=== PATIENT | female | born 1955 | race Two or more races ===

== ENCOUNTER → 2022-07-29 | Outpatient (CLI) | payer MEDICARE, MEDICAID ==
[2022-07-29 16:04] LABS: Urine Blood TRACE /uL (Negative); Urine Specific Gravity 1.015 (1.001-1.035)
[2022-07-29 16:07] LABS: Basophils # (auto) 0.1 10 ^3/uL (0-0.2); Basophils % (auto) 1.4 % (0.0-2.0); Eosinophils # (auto) 0 10 ^3/uL (0-0.8); Hematocrit 30.5 % (36.0-46.0); Hemoglobin 10.2 g/dL (12.2-16.2); Lymphocytes % (auto) 23.6 % (10.0-50.0); Mean Corpuscular Hemoglobin 32.1 pg (28.0-32.0); Mean Corpuscular Hgb Conc. 33.4 g/dL (32.0-36.0); Mean Corpuscular Volume 96.1 fL (80.0-100.0); Monocytes # (auto) 0.2 10 ^3/uL (0-1.3); Monocytes % (auto) 3.9 % (0.0-12.0); Neutrophils # (auto) 2.8 10 ^3/uL (1.6-8.6); Neutrophils % (auto) 70.1 % (37.0-80.0); Red Blood Cells 3.18 10^6/uL (4.0-5.20); White Blood Cell 4.1 10^3/uL (4.4-10.8)
[2022-07-29 16:36] LABS: Albumin 3.4 g/dL (3.4-5.0); BUN/Creatinine Ratio 22.4; Bilirubin, Direct 0.3 mg/dL (0-0.2); Potassium 3.9 mmol/L (3.5-5.1)
[2022-07-29 16:42] LABS: Bilirubin, Total 1.4 mg/dL (0.2-1.0)
[2022-07-29 17:05] LABS: Nucleated Red Blood Cells % 3.9 %; Red Cell Distribution Width 22.5 % (11.8-14.3)
== END | disposition home or self-care (01) ==
LOC: LAB 11:46
PROVIDERS: ATTEND Internal Medicine Cardiovascular Disease
DX: I11.0 Hypertensive heart disease with heart failure (principal); I50.23 Acute on chronic systolic (congestive) heart failure; E55.9 Vitamin D deficiency, unspecified; D51.3 Other dietary vitamin B12 deficiency anemia; D64.9 Anemia, unspecified; E11.9 Type 2 diabetes mellitus without complications; R00.2 Palpitations; R53.1 Weakness; R30.0 Dysuria
CPT/HCPCS: 36415; 80048; 80061; 80076; 81003; 82306; 83036; 83880; 84403; 84443; 85025

== ENCOUNTER → 2022-08-13 | Outpatient (CLI) | payer MEDICARE, MEDICAID | END | disposition home or self-care (01) | LOC: Rad HDHVI 12:40 | PROVIDERS: ATTEND Internal Medicine Cardiovascular Disease | DX: I35.0 Nonrheumatic aortic (valve) stenosis (principal); R07.89 Other chest pain; R00.2 Palpitations | CPT/HCPCS: 93306 ==

== ENCOUNTER → 2022-08-18 | Outpatient (CLI) | payer MEDICARE, MEDICAID ==
[~2022-08-18] VITALS: Ht 167.6 cm; Wt 145.1 kg
[~2022-08-18] MED LIST: ADENOSINE 122 MG in GIVE UN-DILUTED 0 ML IV ONE; ADENOSINE 90 MG/30 ML INJ IV ONE
== END | disposition home or self-care (01) ==
LOC: Rad HDHVI 09:09
PROVIDERS: ATTEND Internal Medicine Cardiovascular Disease
DX: C50.919 Malignant neoplasm of unspecified site of unspecified female breast (principal); R07.89 Other chest pain; E11.9 Type 2 diabetes mellitus without complications; R06.02 Shortness of breath; I31.39 Other pericardial effusion (noninflammatory); R00.2 Palpitations; Z79.84 Long term (current) use of oral hypoglycemic drugs; Z79.899 Other long term (current) drug therapy
CPT/HCPCS: 78452; 93005; 96374; 96375; A9500; J0153; J1642

== ENCOUNTER → 2023-01-25 | Outpatient (CLI) | payer OTHER ==
[~2023-01-25] MED LIST changes: -ADENOSINE 122 MG in GIVE UN-DILUTED 0 ML IV ONE; -ADENOSINE 90 MG/30 ML INJ IV ONE; +AMIO200T33 PO; +ANAS1TAB7 PO; +APIX5TAB PO; +CHOL50007 PO; +FER325T PO; +FURO1TAB31 PO; +GABA800T97 PO; +HYDR-4798 PO; +LOSA25TA38 PO; +METF-370 PO; +POM; +POM SC
[2023-01-25 10:13] VITALS: BP 120/73
[2023-01-25 10:28] VITALS: BP 127/73
== END | disposition home or self-care (01) ==
LOC: Rad HDHVI 09:53
PROVIDERS: ATTEND Internal Medicine Cardiovascular Disease
DX: Z01.818 Encounter for other preprocedural examination (principal); I11.0 Hypertensive heart disease with heart failure; I50.33 Acute on chronic diastolic (congestive) heart failure; I35.1 Nonrheumatic aortic (valve) insufficiency
CPT/HCPCS: 71046; 93005; G0463

== ENCOUNTER 2023-01-28 07:27 | Day surgery (SDC) | payer OTHER, MEDICAID ==
[2023-01-25 12:34] LABS: Basophils # (auto) 0.1 10 ^3/uL (0-0.2); Basophils % (auto) 1.5 % (0.0-2.0); Eosinophils # (auto) 0.1 10 ^3/uL (0-0.8); Eosinophils % (auto) 2.6 % (0.0-7.0); Hematocrit 41.2 % (36.0-46.0); Hemoglobin 13.7 g/dL (12.2-16.2); Lymphocytes # (auto) 1.5 10 ^3/uL (0.4-5.4); Lymphocytes % (auto) 28.1 % (10.0-50.0); Mean Corpuscular Hemoglobin 27.4 pg (28.0-32.0); Mean Corpuscular Hgb Conc. 33.3 g/dL (32.0-36.0); Mean Corpuscular Volume 82.3 fL (80.0-100.0); Monocytes # (auto) 0.4 10 ^3/uL (0-1.3); Monocytes % (auto) 7.5 % (0.0-12.0); Neutrophils # (auto) 3.1 10 ^3/uL (1.6-8.6); Neutrophils % (auto) 60.3 % (37.0-80.0); Nucleated Red Blood Cells % 0.2 %; White Blood Cell 5.2 10^3/uL (4.4-10.8)
[2023-01-25 13:01] LABS: INR 0.96 (0.9-1.15); Partial Thromboplastin Time 26.8 sec (24.6-33.4)
[2023-01-25 13:34] LABS: Calcium 8.8 mg/dL (8.5-10.1); Potassium 4.1 mmol/L (3.5-5.1)
[2023-01-28] VITALS (7 sets, daily range): BP systolic 117–154; BP diastolic 78–97
[~2023-01-28] VITALS: Ht 170.2 cm; Wt 140.6 kg
[2023-01-28] MEDS ORDERED: fentaNYL CITRATE 100 MCG/2 ML VL ONE (10:12)
[2023-01-28] MEDS ORDERED: ANGIOMAX 250 MG VIAL IV ONE (10:12)
[2023-01-28] MEDS ORDERED: MIDAZOLAM HCL 2MG/2ML 2ml VIAL (1mg/ml) ONE (10:13)
[2023-01-28] MEDS ORDERED: SODIUM CHL 0.9% 0 ML ONE (10:13)
[2023-01-28] MEDS ORDERED: LIDOCAINE 2%HCL (LOCAL ANESTH.) INJ 20ML MDV ONE (10:13)
[2023-01-28] MEDS ORDERED: VERAPAMIL 2.5MG/ML INJ 2ML VIAL IV ONE (10:33)
[2023-01-28] MEDS ORDERED: HYDROcodone-ACET 10/325MG TAB PO ONE (11:15)
== END 2023-01-28 13:55 | disposition home or self-care (01) ==
LOC: CATH 07:27
PROVIDERS: ATTEND Internal Medicine Cardiovascular Disease
DX: R94.39 Abnormal result of other cardiovascular function study (principal); R00.2 Palpitations; E11.9 Type 2 diabetes mellitus without complications; I73.9 Peripheral vascular disease, unspecified; E66.01 Morbid (severe) obesity due to excess calories; I25.10 Atherosclerotic heart disease of native coronary artery without angina pectoris; I10 Essential (primary) hypertension; Z87.891 Personal history of nicotine dependence; Z98.890 Other specified postprocedural states; Z79.899 Other long term (current) drug therapy; Z79.84 Long term (current) use of oral hypoglycemic drugs
CPT/HCPCS: 36415; 80048; 85025; 85610; 85730; 93458; C1725; C1769; C1887; C1894; J1642; J1644; J2250; J3010; 99152; 99153

== ENCOUNTER → 2023-09-29 | Outpatient (CLI) | payer MEDICARE, MEDICAID ==
[~2023-09-29] MED LIST changes: +LOSA25TA15 PO; -LOSA25TA38 PO
== END | disposition home or self-care (01) ==
LOC: Rad HDHVI 12:48
PROVIDERS: ATTEND Internal Medicine Cardiovascular Disease
DX: I65.21 Occlusion and stenosis of right carotid artery (principal); I10 Essential (primary) hypertension
CPT/HCPCS: 93880

== ENCOUNTER → 2023-10-01 | Outpatient (CLI) | payer MEDICARE, MEDICAID | END | disposition home or self-care (01) | LOC: Rad HDHVI 10:32 | PROVIDERS: ATTEND Internal Medicine Cardiovascular Disease | DX: I35.1 Nonrheumatic aortic (valve) insufficiency (principal); I11.9 Hypertensive heart disease without heart failure; R07.89 Other chest pain | CPT/HCPCS: 93306 ==

== ENCOUNTER → 2024-06-30 | Outpatient (CLI) | payer MEDICARE, MEDICAID ==
[~2024-06-30] MED LIST changes: +LOSA-533 PO; -LOSA25TA15 PO
== END | disposition home or self-care (01) ==
LOC: Rad HDHVI 13:55
PROVIDERS: ATTEND Internal Medicine Cardiovascular Disease
DX: Z01.818 Encounter for other preprocedural examination (principal)
CPT/HCPCS: 93306

== ENCOUNTER → 2024-07-11 | Outpatient (CLI) | payer MEDICARE, MEDICAID ==
[~2024-07-11] VITALS: Ht 170.2 cm; Wt 158.8 kg
[~2024-07-11] MED LIST changes: +ADENOSINE 133 MG in GIVE UN-DILUTED 0 ML IV ONE; +ADENOSINE 90 MG/30 ML INJ IV ONE
== END | disposition home or self-care (01) ==
LOC: Rad HDHVI 12:41
PROVIDERS: ATTEND Internal Medicine Cardiovascular Disease
DX: Z01.810 Encounter for preprocedural cardiovascular examination (principal); I11.0 Hypertensive heart disease with heart failure; I50.33 Acute on chronic diastolic (congestive) heart failure; R06.02 Shortness of breath; E78.00 Pure hypercholesterolemia, unspecified; I06.1 Rheumatic aortic insufficiency; E11.21 Type 2 diabetes mellitus with diabetic nephropathy; Z86.79 Personal history of other diseases of the circulatory system
CPT/HCPCS: 78452; 93005; 96374; 96375; A9500; J0153

== ENCOUNTER 2025-07-10 15:46 | Inpatient (IN) | payer OTHER, MEDICARE, MEDICAID ==
[~2025-07-10] VITALS: Ht 167.6 cm; Wt 165.3 kg
[~2025-07-10 15:46] MED LIST changes: -ADENOSINE 133 MG in GIVE UN-DILUTED 0 ML IV ONE; -ADENOSINE 90 MG/30 ML INJ IV ONE
--- NOTE | 2025-07-10 17:17 | ED.PDOC ---
HPI (NEURO) HPI Comments 70y F who presents to the ED for chief complaint of R sided weakness. Pt states she has been having R sided facial and R lower extremity weakness since last night PM. Pt states she started to feel R sided numbness and pain with associated lower back pain and came to the ED for further evaluation. Pt in the ED, is alert and oriented x 4 and able to answer all questions. Pt noted to be ambulating with walker. Pt denies any other symptoms at this time. 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 Family History Family History: Reviewed,noncontributory to illness Social History Smoker: Non-Smoker Alcohol: Denies ETOH Use Drugs: Denies Drug Use Lives In: Home Constitutional: denies: chills, diaphoresis, fatigue, fever, malaise, sweats, weakness, others EENTM: denies: blurred vision, double vision, ear bleeding, ear discharge, ear drainage, ear pain, ear ringing, eye pain, eye redness, hearing loss, mouth pain, mouth swelling, nasal discharge, nose bleeding, nose congestion, nose pain, photophobia, tearing, throat pain, throat swelling, voice changes, others Respiratory: denies: cough, hemoptysis, orthopnea, SOB at rest, shortness of breath, SOB with excertion, stridor, wheezing, others Cardiovascular: denies: chest pain, dizzy spells, diaphoresis, Dyspnea on exertion, edema, irregular heart beat, left arm pain, lightheadedness, palpitations, PND, syncope, others Gastrointestinal: denies: abdomen distended, abdominal pain, blood streaked bowels, constipated, diarrhea, dysphagia, difficulty swallowing, hematemesis, melena, nausea, poor appetite, poor fluid intake, rectal bleeding, rectal pain, vomiting, others Genitourinary: denies: abnormal vagina bleeding, burning, dyspareunia, dysuria, flank pain, frequency, hematuria, incontinence, pain, , vagina discharge, urgency, others Neurological: reports: right sided numbness, right sided weakness; denies: dizziness, fainting, headache, left sided numbness, left sided weakness, numbness, paresthesia, pre-existing deficit, seizure, speech problems, tingling, tremors, weakness, others Musculoskeletal: denies: back pain, gout, joint pain, joint swelling, muscle pain, muscle stiffness, neck pain, others Integumetry: denies: bruises, change in color, change in hair/nails, dryness, laceration, lesions, lumps, rash, wounds, others Allergic/Immunocompromised: denies: Difficulty Healing, Frequent Infections, Hives, Itching, others Hematologic/Lymphatic: denies: anemia, blood clots, easy bleeding, easy bruising, swollen glands, others Endocrine: denies: excessive hunger, excessive sweating, excessive thirst, excessive urination, flushing, intolerance to cold, intolerance to heat, unexplained weight gain, unexplained weight loss, others Psychiatric: denies: anxiety, bipolar disorder, depression, hopeless, panic disorder, schizophrenia, sleepless, suicidal, others All Other Systems: Reviewed and Negative Physical Exam General Appearance: No Apparent Distress, Normal HEENT: Eye Lid (R) (Mild swelling noted to right-sided eyelid), Normal ENT Inspection, Pharynx Normal, TMs Normal Neck: Full Range of Motion, Non-Tender, Normal, Normal Inspection Respiratory: Chest Non-Tender, Lungs Clear, No Accessory Muscle Use, No Res piratory Distress, Normal Breath Sounds Cardiovascular: No Edema, No JVD, No Murmur, No Gallop, Normal Peripheral Pulses, Regular Rate/Rhythm Breast Exam: Deferred Gastrointestinal: No Organomegaly, Non Tender, No Pulsatile Mass, Normal Bowel Sounds, Soft Genitalia: Deferred Pelvic: Deferred Rectal: Deferred Extremities: No calf tenderness, Normal capillary refill, Non-tender, No pedal edema Musculoskeletal : Apperance: Normal Neurologic: Alert, communication skills instructor II-XII nml as Tested, No Motor Deficits, Normal Affect, Normal Mood, No Sensory Deficits, Other (No pronator drift) Cerebellar Function: Normal Reflexes: Normal Skin: Dry, Normal Color, Warm Lymphatic: No Adenopathy Was a procedure done? Was a procedure done?: No Differential Diagnosis (SZ) Seizure: N/A General Weakness: Anemia, CVA, Dehydration, Electrolyte imbalance, Encephalopathy, Hypoglycemia, Hypotension, TIA, Vertigo: central, Vertigo: peripheral, Other (UTI, ) X-Ray, Labs, Meds, VS Vital Signs Date Time Temp Pulse Resp B/P (MAP) Pulse Ox O2 Delivery O2 Flow Rate FiO2 07/10/25 16:04 87 07/10/25 15:49 98.2 69 17 125/92 96 98.2 Lab Test 07/10/25 17:02 Range/Units White Blood Count 5.6 4.4-10.8 10^3/uL Red Blood Count 4.47 4.0-5.20 10^6/uL Hemoglobin 12.2 12.2-16.2 g/dL Hematocrit 36.6 36.0-46.0 % Mean Corpuscular Volume 81.9 80.0-100.0 fL Mean Corpuscular Hemoglobin 27.2 L 28.0-32.0 pg Mean Corpuscular Hemoglobin Concent 33.2 32.0-36.0 g/dL Red Cell Distribution Width 16.9 H 11.8-14.3 % Platelet Count 244 140-450 10^3/uL Mean Platelet Volume 8.3 6.9-10.8 fL Neutrophils (%) (Auto) 62.4 37.0-80.0 % Lymphocytes (%) (Auto) 26.3 10.0-50.0 % Monocytes (%) (Auto) 7.5 0.0-12.0 % Eosinophils (%) (Auto) 2.1 0.0-7.0 % Basophils (%) (Auto) 1.7 0.0-2.0 % Neutrophils # (Auto) 3.5 1.6-8.6 10 ^3/uL Lymphocytes # (Auto) 1.5 0.4-5.4 10 ^3/uL Monocytes # (Auto) 0.4 0-1.3 10 ^3/uL Eosinophils # (Auto) 0.1 0-0.8 10 ^3/uL Basophils # (Auto) 0.1 0-0.2 10 ^3/uL Nucleated Red Blood Cells 0.1 % Prothrombin Time 10.8 9.3-11.8 sec Prothrombin Time INR 1.02 0.9-1.15 Sodium Level 142 136-145 mmol/L Potassium Level 4.3 3.5-5.1 mmol/L Chloride Level 107 98-107 mmol/L Carbon Dioxide Level 26 20-31 mmol/L Anion Gap 9 5-15 Blood Urea Nitrogen 18 9-23 mg/dL Creatinine 1.12 H 0.550-1.02 mg/dL Glomerular Filtration Rate Calc 53 >90 mL/min BUN/Creatinine Ratio 16.1 10.0-20.0 Serum Glucose 118 H 74-106 mg/dL Lactic Acid Level 1.3 0.4-2.0 mmol/L Calcium Level 9.2 8.7-10.4 mg/dL Total Bilirubin 0.5 0.2-1.0 mg/dL Aspartate Amino Transferase (AST) 13 13-40 U/L Alanine Aminotransferase (ALT) 14 7-40 U/L Alkaline Phosphatase 157 H 46-116 U/L Total Protein 7.1 5.7-8.2 g/dL Albumin 4.1 3.2-4.8 g/dL X-Ray, Labs, Meds, VS Comment Imaging was reviewed by this provider, there is no obvious pathological or acute disease process. Pending radiology review Labs were reviewed by this provider, no abnormalities Vital signs reviewed by this provider, clinically stable Patient unable to bear weight on the right side Concerns that patient is still has numbness and pain on the right side. Patient will be admitted for further evaluation Recommend Neurology consult Recommend MRI Time of 1ST Reevaluation: 17:50 Reevaluation 1ST: Unchanged Patient Education/Counseling: Diagnosis, Treatment Family Education/Counseling: No Family Present Departure 1 Departure Time of Disposition: 18:44 Impression: Primary Impression: Right sided numbness Additional Impressions: Right-sided back pain Qualified Codes: M54.6 - Pain in thoracic spine Incontinence in female Disposition: ADMITTED INPATIENT Condition: Stable Discharged With: Self Critical Care Note Critical Care Time?: No Stability Stability form required: No Heart Score Heart Score: Heart Score Response (Comments) Value History N/A 0 EKG N/A 0 Age N/A 0 Risk Factors N/A 0 Troponin N/A 0 Total 0 I personally scribed for ALISON OJEDA (JENNIFER) on 07/10/25 at 17:17. Electronically submitted by Chris BRENNER). I personally scribed for ALISON OJEDA (JENNIFER) on 07/10/25 at 17:21. Electronically submitted by Chris BRENNER). ALISON OJEDAP Jul 10, 2025 17:17
[2025-07-10 17:20] LABS: Hematocrit 36.6 % (36.0-46.0); Hemoglobin 12.2 g/dL (12.2-16.2); Mean Corpuscular Hemoglobin 27.2 pg (28.0-32.0); Mean Corpuscular Volume 81.9 fL (80.0-100.0); Nucleated Red Blood Cells % 0.1 %
[2025-07-10 17:31] LABS: Alanine Aminotransferase 14 U/L (7-40); Albumin 4.1 g/dL (3.2-4.8); Anion Gap 9 (5-15); BUN/Creatinine Ratio 16.1 (10.0-20.0); Blood Urea Nitrogen 18 mg/dL (9-23); Calcium 9.2 mg/dL (8.7-10.4); Carbon Dioxide 26 mmol/L (20-31); Potassium 4.3 mmol/L (3.5-5.1); Sodium 142 mmol/L (136-145); Total Protein 7.1 g/dL (5.7-8.2)
[2025-07-10 17:32] LABS: Bilirubin, Total 0.5 mg/dL (0.2-1.0)
[2025-07-10 17:36] LABS: INR 1.02 (0.9-1.15); Prothrombin Time 10.8 sec (9.3-11.8)
[2025-07-10 17:46] LABS: Alkaline Phosphatase 157 U/L (46-116); Chloride 107 mmol/L (98-107); Glucose 118 mg/dL (74-106)
--- NOTE | 2025-07-10 18:27 | DVH ---
EXAM: CT STROKE CTH INDICATION: RIGHT SIDED WEAKNESS TECHNIQUE: CT of the head without intravenous contrast. Radiation Dose Information: CT Dose: CTDI volume is 66.47 mGy. Dose-length product is 1259.73 mGy*cm The dose indicators for CT are the volume Computed Tomography (CT) Dose Index (CTDIvol) and the Dose Length Product (DLP), and are measured in units of mGy and mGy-cm, respectively. These indicators are not patient dose, but values generated from the CT scanner acquisition factors. The report includes radiation exposure data for exposures received during this examination. COMPARISON: US CAROTID DUPLX W COLOR DOP on DOS: 09/29/23 FINDINGS: There is no evidence of acute intracranial hemorrhage, extra-axial collection, mass effect, midline s hift, herniation or hydrocephalus. The ventricles, sulci and cisterns are age appropriate. The kelsey-white differentiation is intact. Patchy periventricular and subcortical white matter hypoattenuation is nonspecific but may be related to small vessel ischemic disease. The visualized paranasal sinuses and mastoid air cells are clear. The surrounding soft tissues and osseous structures are unremarkable. IMPRESSION: No acute intracranial abnormality.
[2025-07-10 20:00] VITALS: O2SAT 98
[2025-07-10] MEDS ORDERED: ONDANSETRON HCL 4 MG/2 ML VIAL IV PRN (20:45)
[2025-07-10] MEDS ORDERED: DEXTROSE (50%) 50ML SYRG IV PRN (20:45)
[2025-07-10 22:10] VITALS: BP 138/79; PULSE 84; RESP 19; TEMP 97.6; O2SAT 92
[2025-07-10] MEDS: ACCU-CHEK COMFORT CURVE STRIP VI SCH (23:10)
--- NOTE | 2025-07-10 23:12 | DVHHP2 ---
History of Present Illness Reason for Visit: Numbness History of Present Illness 70-year-old female presents for evaluation of right-sided numbness. Patient reports developing right-sided numbness from her face down to her right leg. Denies unilateral weakness, slurred speech or blurred vision. No cardiac or respiratory complaints. Past Medical History Hypertension, breast cancer, AFib, diabetes mellitus Past Surgical History Denies Family History Noncontributory Smoke: No ALCOHOL: none Drugs: None, Marijuana Lives: with Family Review of Systems Review of Systems Review of systems are currently negative otherwise addressed in HPI. Allergies: Coded Allergies: No Known Drug Allergy (Verified Allergy, Unknown, 01/25/23) Medications Current Medications Medications Dose Ordered Sig/Brandon Route Start Time Stop Time Status Last Admin Dose Admin Amiodarone HCl 400 mg DAILY PO 07/11/25 10:00 Apixaban 5 mg BID PO 07/10/25 22:00 Furosemide 40 mg DAILY PO 07/11/25 10:00 Gabapentin 800 mg TID PO 07/10/25 22:00 Losartan Potassium 25 mg DAILY PO 07/11/25 10:00 Diagnostic Test (Pha) 1 strip ACHS 07/10/25 22:00 Insulin Human Regular ACHS SC 07/10/25 22:00 Dextrose 50 ml UD PRN IV 07/10/25 20:45 Acetaminophen/ Hydrocodone Bitart 1 tab Q4HP PRN PO 07/10/25 20:45 Ondansetron HCl 4 mg Q4HP PRN IV 07/10/25 20:45 Acetaminophen 650 mg Q6HP PRN PO 07/10/25 20:45 Exam Vital Signs Vital Signs Date Time Temp Pulse Resp B/P (MAP) Pulse Ox O2 Delivery O2 Flow Rate FiO2 07/10/25 20:00 97.8 76 18 129/78 (95) 98 97.8 07/10/25 20:00 Room Air* 0 21 Exam Gen: 70-year-old female in mild distress, morbidly obese Skin: Warm, dry, normal color and texture, no rash. HEENT: Normocephalic atraumatic, mucous membranes moist and pink. Neck: Cervical and supraclavicular nodes normal without enlargement, trachea is midline, thyroid gland is normal without masses. Pulmonary: Clear to auscultation and percussion bilaterally. Cardiac: Regular rate and rhythm. No murmur Abdomen: Soft, nontender, nondistended, bowel sounds present all 4 quadrants, no guarding, no rigidity, no organomegaly. Extremities: No cyanosis, clubbing, no edema Neuro: Cranial nerves II through XII grossly intact, normal affect and speech, no focal motor deficits. Labs/Xrays ORDERING PHYSICIAN: AJITH SNIDER MD PROCEDURE(s): CTH - STROKE CTH REASON: RIGHT SIDED WEAKNESS ORDER NUMBER(s): [id number], ACCESSION NUMBER(s): [id number] EXAM: CT STROKE CTH INDICATION: RIGHT SIDED WEAKNESS TECHNIQUE: CT of the head without intravenous contrast. Radiation Dose Information: CT Dose: CTDI volume is 66.47 mGy. Dose-length product is 1259.73 mGy*cm The dose indicators for CT are the volume Computed Tomography (CT) Dose Index (CTDIvol) and the Dose Length Product (DLP), and are measured in units of mGy and mGy-cm, respectively. These indicators are not patient dose, but values generated from the CT scanner acquisition factors. The report includes radiation exposure data for exposures received during this examination. COMPARISON: US CAROTID DUPLX W COLOR DOP on DOS: 09/29/23 FINDINGS: There is no evidence of acute intracranial hemorrhage, extra-axial collection, mass effect, midline shift, herniation or hydrocephalus. The ventricles, sulci and cisterns are age appropriate. The kelsey-white differentiation is intact. Patchy periventricular and subcortical white matter hypoattenuation is nonspecific but may be related to small vessel ischemic disease. The visualized paranasal sinuses and mastoid air cells are clear. The surrounding soft tissues and osseous structures are unremarkable. IMPRESSION: No acute intracranial abnormality. Labs Test 07/10/25 17:02 Range/Units White Blood Count 5.6 4.4-10.8 10^3/uL Red Blood Count 4.47 4.0-5.20 10^6/uL Hemoglobin 12.2 12.2-16.2 g/dL Hematocrit 36.6 36.0-46.0 % Mean Corpuscular Volume 81.9 80.0-100.0 fL Mean Corpuscular Hemoglobin 27.2 L 28.0-32.0 pg Mean Corpuscular Hemoglobin Concent 33.2 32.0-36.0 g/dL Red Cell Distribution Width 16.9 H 11.8-14.3 % Platelet Count 244 140-450 10^3/uL Mean Platelet Volume 8.3 6.9-10.8 fL Neutrophils (%) (Auto) 62.4 37.0-80.0 % Lymphocytes (%) (Auto) 26.3 10.0-50.0 % Monocytes (%) (Auto) 7.5 0.0-12.0 % Eosinophils (%) (Auto) 2.1 0.0-7.0 % Basophils (%) (Auto) 1.7 0.0-2.0 % Neutrophils # (Auto) 3.5 1.6-8.6 10 ^3/uL Lymphocytes # (Auto) 1.5 0.4-5.4 10 ^3/uL Monocytes # (Auto) 0.4 0-1.3 10 ^3/uL Eosinophils # (Auto) 0.1 0-0.8 10 ^3/uL Basophils # (Auto) 0.1 0-0.2 10 ^3/uL Nucleated Red Blood Cells 0.1 % Prothrombin Time 10.8 9.3-11.8 sec Prothrombin Time INR 1.02 0.9-1.15 Sodium Level 142 136-145 mmol/L Potassium Level 4.3 3.5-5.1 mmol/L Chloride Level 107 98-107 mmol/L Carbon Dioxide Level 26 20-31 mmol/L Anion Gap 9 5-15 Blood Urea Nitrogen 18 9-23 mg/dL Creatinine 1.12 H 0.550-1.02 mg/dL Glomerular Filtration Rate Calc 53 >90 mL/min BUN/Creatinine Ratio 16.1 10.0-20.0 Serum Glucose 118 H 74-106 mg/dL Lactic Acid Level 1.3 0.4-2.0 mmol/L Calcium Level 9.2 8.7-10.4 mg/dL Total Bilirubin 0.5 0.2-1.0 mg/dL Aspartate Amino Transferase (AST) 13 13-40 U/L Alanine Aminotransferase (ALT) 14 7-40 U/L Alkaline Phosphatase 157 H 46-116 U/L Total Protein 7.1 5.7-8.2 g/dL Albumin 4.1 3.2-4.8 g/dL SEPSIS Sepsis Screen Date sepsis recognized/suspect: Jul 10, 2025 Time Sepsis recognized/suspect: 1550 Recent Procedure: No On Antibiotic Therapy: No Respiratory Rate >20: No Heart Rate >90: No Temp<36 C (96.8 F) or >38.3 C: No SBP <90 or MAP <65 mmHG: No New Acute Mental Status Change: No Is the patient on CPAP, BIPAP,: No Physician Orders Stroke Assessment (07/10/25 16:04) Electrocardigram (07/10/25 16:04) Ct Head Cva (07/10/25 16:04) 2 Large Bore Ivs (20mg Or Larg (07/10/25 16:04) Electrocardigram (07/10/25 17:04) Electrocardigram (07/10/25 19:04) Urinalysis (07/10/25 16:37) Amiodarone Tablet (Cordarone Tablet) (07/11/25 10:00) Apixaban (Eliquis) (07/10/25 22:00) Furosemide Tablet (Lasix Tablet) (07/11/25 10:00) Gabapentin Capsule (Neurontin Capsule) (07/10/25 22:00) Losartan Tablet (Cozaar Tablet) (07/11/25 10:00) Consistent Carb(Ccho)Diabetes (07/11/25 Breakfast) Basic Metabolic Panel (07/11/25 04:00) Glucose Blood (Accu-Chek Comfort Curve T (07/10/25 22:00) Insulin R (Human) (Insulin R) (07/10/25 22:00) Dextrose 50% Syringe (07/10/25 20:45) Hydrocodone-Acet 5/325mg Tab (Daykin 5/32 (07/10/25 20:45) Ondansetron Hcl (Zofran) (07/10/25 20:45) Condition: Stable (07/10/25 20:40) Acetaminophen Tablet (Tylenol Tablet) (07/10/25 20:45) Bedrest With Bathroom Privileg (07/10/25 20:40) Brain Head Wo Contrast (07/10/25 20:40) Admit (07/10/25 23:08) * Neurology Consult (07/10/25 23:08) Vital Signs Date Time Temp Pulse Resp B/P (MAP) Pulse Ox O2 Delivery O2 Flow Rate FiO2 07/10/25 20:00 97.8 76 18 129/78 (95) 98 97.8 07/10/25 20:00 98 Room Air* 0 21 07/10/25 16:04 87 07/10/25 15:49 98.2 69 17 125/92 96 98.2 Laboratory Tests Test 07/10/25 17:02 Lactic Acid Level 1.3 mmol/L (0.4-2.0) White Blood Count 5.6 10^3/uL (4.4-10.8) Assessment/Plan Assessment/Plan Assessment Right-sided numbness Rule out CVA Diabetes mellitus Hypertension Morbid obesity Plan Admit the patient to [facility] to the hospitalist Nephrology consultation MRI of the brain pending Resume home medications Continue treatment per orders. Plan discussed with: Patient My Orders Orders - TANVI JENNINGS AGACNP Procedure Category Date Status Time Amiodarone Tablet PHA 07/11/25 In Process (Cordarone Tablet) 10:00 Apixaban (Eliquis) PHA 07/10/25 In Process 22:00 Furosemide Tablet PHA 07/11/25 In Process (Lasix Tablet) 10:00 Gabapentin Capsule PHA 07/10/25 In Process (Neurontin Capsule) 22:00 Losartan Tablet PHA 07/11/25 In Process (Cozaar Tablet) 10:00 Consistent DIET 07/11/25 Transmitted Carb(Ccho)Diabetes Breakfast Basic Metabolic Panel LAB 07/11/25 Verified 04:00 Glucose Blood PHA 07/10/25 In Process (Accu-Chek Comfort 22:00 Insulin R (Human) PHA 07/10/25 In Process (Insulin R) 22:00 Dextrose 50% Syringe PHA 07/10/25 In Process 20:45 Hydrocodone-Acet PHA 07/10/25 In Process 5/325mg Tab (Daykin 20:45 Ondansetron Hcl PHA 07/10/25 In Process (Zofran) 20:45 Condition: Stable SONIYA 07/10/25 In Process 20:40 Acetaminophen Tablet PHA 07/10/25 In Process (Tylenol Tablet) 20:45 Bedrest With Bathroom SONIYA 07/10/25 In Process Privileg 20:40 Brain Head Wo Contrast MRI 07/10/25 Logged 20:40 Admit ADMIT 07/10/25 Verified 23:08 * Neurology Consult CONS 07/10/25 Verified 23:08 Date of Service: Jul 10, 2025 Billing Provider: TANVI JENNINGS Common Visit Codes: [id number] INP/OBS CARE (HIGH) TANVI JENNINGS Jul 10, 2025 23:12
[2025-07-10] MEDS: GABAPENTIN 400 MG CAP PO SCH (23:33)
[2025-07-10] MEDS: HYDROcodone-ACET 5/325MG TAB PO PRN (23:33)
[2025-07-10] MEDS: APIXABAN 5 MG TAB PO SCH (23:34)
[2025-07-10] MEDS: InsuLIN REG 1unit/0.01ml Soln (100units/ml) SC SCH (23:49)
[2025-07-11] VITALS (9 sets, daily range): BP systolic 118–164; BP diastolic 69–96; PULSE 77–91; RESP 17–20; TEMP 97.1–97.9; O2SAT 92–95
[2025-07-11 02:46] LABS: Urine Protein, UAD Negative (Negative)
--- NOTE | 2025-07-11 05:56 | ECG ---
[facility] Test Date: 2025-07-10 Test Time: 16:04:44 Pat Name: HOLLIS HERMOSILLO Department: ED Room: 0280 B Gender: F Test Preparer: INNA : 1955 Requested By: AJITH SNIDER Order Number: [id number] Reading MD: Esteban Breaux Measurements Intervals [place] Rate: 87 P: 17 WI: 180 QRS: 20 QRSD: 93 T: 28 QT: 388 QTc: 467 Interpretive Statements Sinus rhythm Low voltage, precordial leads Abnormal inferior Q waves Electronically Signed On 07-17-2025 13:17:52 PST by Esteban Breaux Please click the below link to view image of tracing.
[2025-07-11] MEDS: KETOROLAC TROMETH 30 MG/ML 1ML VIAL IV ONE (06:00)
[2025-07-11 07:59] LABS: Chloride 108 mmol/L (98-107); Potassium 4.4 mmol/L (3.5-5.1); Sodium 144 mmol/L (136-145)
[2025-07-11 08:00] LABS: Anion Gap 10 (5-15); Carbon Dioxide 26 mmol/L (20-31)
[2025-07-11 08:02] LABS: Calcium 8.5 mg/dL (8.7-10.4)
[2025-07-11 08:05] LABS: BUN/Creatinine Ratio 21.1 (10.0-20.0)
[2025-07-11 08:10] LABS: Blood Urea Nitrogen 24 mg/dL (9-23); Glucose 142 mg/dL (74-106)
--- NOTE | 2025-07-11 10:15 | DVH ---
EXAMINATION: MRI BRAIN HEAD WO CONTRAST INDICATION: Right-sided numbness COMPARISON: None TECHNIQUE: Multiplanar, multisequence magnetic resonance imaging of the brain was performed without the use of i ntravenous contrast. FINDINGS: No evidence of acute or remote infarct. No intracranial hemorrhage. No mass effect. There is periventricular/deep white matter T2/FLAIR hyperintensity is nonspecific, but most commonly associated with chronic microvascular disease. The ventricles and sulci are normal in size for age. Clear basal cisterns. Flow voids in the major intracranial vessels are maintained. No abnormality of the orbits. Paranasal sinuses and mastoid air cells are clear. No abnormality of the visualized osseous structures and extracranial soft tissues. IMPRESSION: No acute infarct, intracranial hemorrhage, mass effect, or hydrocephalus.
[2025-07-11] MEDS: AMIODARONE HCL 200 MG TAB PO SCH (11:21)
[2025-07-11] MEDS: FUROSEMIDE 40 MG TAB PO SCH (11:21)
[2025-07-11] MEDS: LOSARTAN POTASSIUM 25 MG TAB PO SCH (11:22)
--- NOTE | 2025-07-11 12:36 | DVHPN2 ---
Reviewed: Care Plan, H&P, Labs, Medications, Previous Orders, Radiology Changes from previous H/P or p: No Changes Objective Vitals Vital Signs Date Time Temp Pulse Resp B/P (MAP) Pulse Ox O2 Delivery O2 Flow Rate FiO2 07/11/25 11:22 133/73 07/11/25 09:00 97.5 83 20 92 97.5 07/11/25 02:00 Room Air* 0 21 Intake/Output Intake and Output 07/11/25 07:00 Intake Total 200 ml Balance 200 ml Intake Oral 200 ml Medications Current Medications Medications Dose Ordered Sig/Brandon Route Start Time Stop Time Status Last Admin Dose Admin Amiodarone HCl 400 mg DAILY PO 07/11/25 10:00 07/11/25 11:21 400 MG Apixaban 5 mg BID PO 07/10/25 22:00 07/11/25 11:22 5 MG Furosemide 40 mg DAILY PO 07/11/25 10:00 07/11/25 11:21 40 MG Gabapentin 800 mg TID PO 07/10/25 22:00 07/11/25 06:05 800 MG Losartan Potassium 25 mg DAILY PO 07/11/25 10:00 07/11/25 11:22 25 MG Diagnostic Test (Pha) 1 strip ACHS 07/10/25 22:00 07/11/25 11:30 1 STRIP Insulin Human Regular ACHS SC 07/10/25 22:00 07/11/25 06:12 2 UNITS Dextrose 50 ml UD PRN IV 07/10/25 20:45 Acetaminophen/ Hydrocodone Bitart 1 tab Q4HP PRN PO 07/10/25 20:45 07/11/25 03:38 1 TAB Ondansetron HCl 4 mg Q4HP PRN IV 07/10/25 20:45 Acetaminophen 650 mg Q6HP PRN PO 07/10/25 20:45 Laboratory Results Laboratory Tests 07/10/25 17:02 07/11/25 06:08 Chemistry Test 07/10/25 17:02 07/11/25 06:08 Albumin 4.1 g/dL (3.2-4.8) Calcium Level 9.2 mg/dL (8.7-10.4) 8.5 mg/dL (8.7-10.4) L Total Protein 7.1 g/dL (5.7-8.2) Coagulation Test 07/10/25 17:02 Prothrombin Time 10.8 sec (9.3-11.8) Prothrombin Time INR 1.02 (0.9-1.15) LFT Test 07/10/25 17:02 Alanine Aminotransferase (ALT) 14 U/L (7-40) Alkaline Phosphatase 157 U/L (46-116) H Aspartate Amino Transferase (AST) 13 U/L (13-40) Total Bilirubin 0.5 mg/dL (0.2-1.0) Urinalysis Test 07/11/25 01:20 Urine Color Light-yellow (Yellow) Urine Clarity Clear (Clear) Urine pH 5.5 (5.0-9.0) Urine Specific Dale 1.017 (1.001-1.035) Urine Protein Negative (Negative) Urine Ketones Negative (Negative) Urine Blood Negative /uL (Negative) Urine Nitrite Negative (Negative) Urine Bilirubin Negative (Negative) Urine Urobilinogen Normal mg/dL (Negative) Urine Leukocyte Esterase Negative /uL (Negative) Urine RBC None seen /hpf (0 - 4) Urine Microscopic WBC 1 /HPF (0-5) Urine Squamous Epithelial Cells Few /hpf (<5) Urine Bacteria None seen /hpf (None Seen) Urine Glucose Normal mg/dL (Normal) Labs and/or images reviewed: Labs reviewed by me, Image(s) reviewed by me Assessment/Plan Assessment/Plan Right-sided numbness: CT head negative, MRI brain negative, Neurology consult for Dr. 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 Chidi Shay at bedside Plan discussed with: Patient Date of Service: Jul 11, 2025 Billing Provider: BHUPINDER GODINEZ MD Common Visit Codes: [id number] CARE 30-74 MIN BHUPINDER GODINEZ MD Jul 11, 2025 12:36
[2025-07-11] MEDS: HYDROcodone-ACET 10/325MG TAB PO PRN (13:08)
--- NOTE | 2025-07-11 15:08 | DVH ---
Indication: Right-sided numbness Technique: Real-time ultrasound images of the neck vessels with kelsey-scale, color and wave Doppler we re obtained. Comparison: US CAROTID DUPLX W COLOR DOP on DOS: 09/29/23 Findings: The right mid to distal internal carotid arteries nonvisualized. The following peak systolic velocities were recorded in cm/sec: Right internal carotid: 76 Right common carotid: 80 Right external carotid: 118 Right internal/common carotid ratio: 0.9 Left internal carotid: 109 Left common carotid: 70 Left external carotid: 61 Left internal/common carotid ratio: 1.6 Bilateral vertebral artery nonvisualized. Impression: No hemodynamically significant stenosis by velocity criteria. However the right mid to distal interna l carotid arteries and bilateral vertebral arteries are not visualized. Recommend CT angiogram neck to evaluate.
[2025-07-11] MEDS: CYCLOBENZAPRINE HCL 10 MG TAB PO SCH (21:25)
--- NOTE | 2025-07-11 21:56 | DVHINCON2 ---
Date of service: Jul 11, 2025 Referring Physician Jesus Reason for Consultation Right sided numbness History of Present Illness Ms. Pearson is a 70 years old right-handed female with a history of breast cancer, obesity, anxiety, depression, AFib she came to the [facility] on 07/10/2025 with a chief complaint of right-sided weakness. At this time, he is awake, oriented x3, but she is not a good historian On , she had swelling in the right face, on 07/09/25, she woke up in the morning with right facial numbness, on 07/10 25, she woke with weakness in the right arm and leg, in that he was not able to move the right foot at all, but was able to move right arm a little bit. The patient has noticed improvement after he came to the hospital, today she was able to walk slowly with her walker. She has never had similar problems previously, she denies history of stroke Says right neck pain since 07/08/2025 She is released every two weeks, she has a pain in her right back Urinalysis, 07/11/2025: Unremarkable CBC, 07/10/2025: Unremarkable BUN/CR, 07/10/2025: 18/1.12, 07/11/2025: 24/1,14 Carotid Doppler, 07/11/2025: No hemodynamically significant stenosis by velocity criteria. However the right mid to distal internal carotid arteries and bilateral vertebral arteries are not visualized. Recommend CT angiogram neck to evaluate CT head, 07/10/2025: No acute intracranial abnormality MRI head, 07/11/2025: No acute infarct, intracranial hemorrhage, mass effect, or hydrocephalus Past Medical History Breast cancer, AFib, morbid obesity, anxiety, depression Past Surgical History Breast cancer removed, right leg cellulitis treatment Family History: Cerebrovascular accident (CVA) G8 MOTHER Family History Hypertension, cancer, stroke Social History She was a tobacco smoker, but no history of drug or alcohol abuse Allergies: Coded Allergies: No Known Drug Allergy (Verified Allergy, Unknown, 01/25/23) Home Meds Reported Medications Patients Own Medication (PATIENTS OWN MEDICATION) ., 15 MG SC QWEEKLY for diabetes on MONDAYS PTS OWN MED-OBTAIN FROM PT AND SEND TO RX DRUG: FREQ: RX# EXP: DATE DISP: TECH: [facility]: 01/27/23 Apixaban Base (ELIQUIS) 5 Mg Tab, 5 MG PO BID for STOP ON 01/27/23, TAB 01/25/23 Amiodarone Hcl (Amiodarone Hcl) 200 Mg Tab, 400 MG PO DAILY for ARRHYTHMIA 01/25/23 Anastrozole (Anastrozole) 1 Mg Tab, 1 TAB PO DAILY for BREASR CA, #30 TAB 5 Refills 01/25/23 Losartan Potassium (Losartan Potassium) 25 Mg Tab, 25 MG PO DAILY for HTN for 30 Days, MG 01/25/23 Cholecalciferol (VITAMIN D3) 5,000 Unit Cap, 5000 UNIT PO DAILY for SUPPLEMENT, CAP 01/25/23 Ferrous Sulfate (FERROUS SULFATE) 325 Mg Tb, 325 MG PO DAILY for SUPPLEMENT, TAB 01/25/23 Furosemide (Lasix) 40 Mg Tab, 40 MG PO DAILY for EDEMA, TAB 01/25/23 Patients Own Medication (PATIENTS OWN MEDICATION) . PTS OWN MED-OBTAIN FROM PT AND SEND TO RX DRUG: FREQ: RX# EXP: DATE DISP: TECH: RP: 01/25/23 Hydrocodone-Acetaminophen (Hydrocodone Bitartrate/AC 10-325 mg) 1 Tab Tab, 1 TAB PO TIDP PRN for PAIN SCALE 7 THRU 10, TAB 01/25/23 Gabapentin (Gabapentin) 800 Mg Tab, 800 MG PO TID, TAB 01/25/23 Metformin Hydrochloride (Metformin Hcl) 500 Mg Tab, 500 MG PO BID for DIABETES for 30 Days, MG 01/25/23 Current Medications Current Medications Medications (Trade) Dose Ordered Sig/Brandon Route PRN Reason Start Time Stop Time Status Last Admin Amiodarone HCl (Cordarone Tablet) 400 mg DAILY PO 07/11/25 10:00 07/11/25 11:21 Apixaban (Eliquis) 5 mg BID PO 07/10/25 22:00 07/11/25 21:24 Furosemide (Lasix Tablet) 40 mg DAILY PO 07/11/25 10:00 07/11/25 11:21 Gabapentin (Neurontin Capsule) 800 mg TID PO 07/10/25 22:00 07/11/25 21:25 Losartan Potassium (Cozaar Tablet) 25 mg DAILY PO 07/11/25 10:00 07/11/25 11:22 Diagnostic Test (Pha) (Accu-Chek Comfort Curve T) 1 strip ACHS 07/10/25 22:00 07/11/25 21:19 Insulin Human Regular (InsuLIN R) ACHS SC 07/10/25 22:00 07/11/25 17:57 Cyclobenzaprine HCl (Flexeril Tablet) 10 mg HS PO 07/11/25 22:00 07/11/25 21:25 Acetaminophen/ Hydrocodone Bitart ([place] 10/325MG Tab) 1 tab Q6HP PRN PO MODERATE PAIN (4-6 PAIN SCALE) 07/11/25 12:45 07/11/25 13:08 Review of Systems As above, the other systems are negative Vital Signs Vital Signs Date Time Temp Pulse Resp B/P (MAP) Pulse Ox O2 Delivery O2 Flow Rate FiO2 07/11/25 20:00 20 Room Air* 0 21 07/11/25 17:00 97.1 87 164/96 (118) 92 97.1 Physical Exam GENERAL EXAM: General: the patient is well developed and nourished. No acute distress. HEENT: Normocephalic, neck is supple, no carotid bruits. No mass. RESPIRATORY: Normal respiratory effort with symmetrical lung expansion. Lungs clear to auscultation. CARDIOVASCULAR: Regular rate and rhythm with no murmurs. S1, S2. ABDOMEN: Soft, nontender, normal bowel sound NEUROLOGICAL: MENTAL STATUS: Awake and alert. Oriented to person, place, time SPEECH, LANGUAGE, HIGHER CORTICAL FUNCTION: no aphasia or dysathria. CRANIAL NERVES: #2: Intact visual alvarez to confrontation. The optic discs were sharp. #3,4,6: Pupils are equal, round and reactive. EOMs full and conjugate. #5: Facial sensation intact in all three divisions bilaterally. Mandibular strength intact. #7: Facial muscles symmetrical and strength intact. #8: Hearing grossly normal to voice. #9,10: Uvula and soft palate rise in the midline. Swallow and voice are normal. #11: Trapezius and sternomastoid strength intact bilaterally. #12: Tongue midline. No fasciculations or atrophy. SENSATION: Sensation to touch and pinprick is diminished in the right arm than leg MOTOR: Normal tone in the upper and lower extremity. Normal muscle bulk. No fasciculations. No abnormal movements or posturing. Muscle strength of the major groups in the upper extremities is 4/5 with the right slightly weaker. Muscle strength of the major groups in the lower extremities is 4/5 with the right leg weaker. REFLEXES: Deep tendon reflexes are symmetrical. No pathological reflexes. CEREBELLAR/COORDINATION: Finger to nose unremarkable bilaterally GAIT/STATION: deferred. Labs/Diagnostic Data Labs Test 07/11/25 21:14 07/11/25 06:08 07/11/25 01:20 07/10/25 17:02 Range/Units POC Glucose 131 H 70-106 mg/dl Sodium Level 144 136-145 mmol/L Potassium Level 4.4 3.5-5.1 mmol/L Chloride Level 108 H 98-107 mmol/L Carbon Dioxide Level 26 20-31 mmol/L Anion Gap 10 5-15 Blood Urea Nitrogen 24 H 9-23 mg/dL Creatinine 1.14 H 0.550-1.02 mg/dL Glomerular Filtration Rate Calc 52 >90 mL/min BUN/Creatinine Ratio 21.1 H 10.0-20.0 Serum Glucose 142 H 74-106 mg/dL Calcium Level 8.5 L 8.7-10.4 mg/dL Urine Color Light-yellow Yellow Urine Clarity Clear Clear Urine pH 5.5 5.0-9.0 Urine Specific [place] 1.017 1.001-1.035 Urine Protein Negative Negative Urine Ketones Negative Negative Urine Blood Negative Negative /uL Urine Nitrite Negative Negative Urine Bilirubin Negative Negative Urine Urobilinogen Normal Negative mg/dL Urine Leukocyte Esterase Negative Negative /uL Urine RBC None seen 0 - 4 /hpf Urine Microscopic WBC 1 0-5 /HPF Urine Squamous Epithelial Cells Few <5 /hpf Urine Bacteria None seen None Seen /hpf Urine Glucose Normal Normal mg/dL White Blood Count 5.6 4.4-10.8 10^3/uL Red Blood Count 4.47 4.0-5.20 10^6/uL Hemoglobin 12.2 12.2-16.2 g/dL Hematocrit 36.6 36.0-46.0 % Mean Corpuscular Volume 81.9 80.0-100.0 fL Mean Corpuscular Hemoglobin 27.2 L 28.0-32.0 pg Mean Corpuscular Hemoglobin Concent 33.2 32.0-36.0 g/dL Red Cell Distribution Width 16.9 H 11.8-14.3 % Platelet Count 244 140-450 10^3/uL Mean Platelet Volume 8.3 6.9-10.8 fL Neutrophils (%) (Auto) 62.4 37.0-80.0 % Lymphocytes (%) (Auto) 26.3 10.0-50.0 % Monocytes (%) (Auto) 7.5 0.0-12.0 % Eosinophils (%) (Auto) 2.1 0.0-7.0 % Basophils (%) (Auto) 1.7 0.0-2.0 % Neutrophils # (Auto) 3.5 1.6-8.6 10 ^3/uL Lymphocytes # (Auto) 1.5 0.4-5.4 10 ^3/uL Monocytes # (Auto) 0.4 0-1.3 10 ^3/uL Eosinophils # (Auto) 0.1 0-0.8 10 ^3/uL Basophils # (Auto) 0.1 0-0.2 10 ^3/uL Nucleated Red Blood Cells 0.1 % Prothrombin Time 10.8 9.3-11.8 sec Prothrombin Time INR 1.02 0.9-1.15 Lactic Acid Level 1.3 0.4-2.0 mmol/L Total Bilirubin 0.5 0.2-1.0 mg/dL Aspartate Amino Transferase (AST) 13 13-40 U/L Alanine Aminotransferase (ALT) 14 7-40 U/L Alkaline Phosphatase 157 H 46-116 U/L Total Protein 7.1 5.7-8.2 g/dL Albumin 4.1 3.2-4.8 g/dL Assessment Right-sided weakness with unremarkable MRI scan New onset right neck pain Gait disturbance AFib Plan/Recommendation Monitoring Supportive treatment MRI C-spine Eliquis 5 mg b.i.d. Amiodarone 400 mg daily Current pain management Up to chair Physical therapy More recommendation per clinical course Prognosis: Poor Time spent is 55 minutes This medical document was created using an electronic medical record system with [employer] dictation system. Although this document has been carefully reviewed, there may still be some phonetic and typographical errors. These areas are purely typographical due to imperfections of the software programs, and do not reflect any compromise in the patient's medical care. Plan discussed with: Patient, Other SUSANNE MELTON MD Jul 11, 2025 21:56
[2025-07-11] MEDS ORDERED: LORazepam 2MG/ML-1ML VIAL IV PRN (23:00)
[2025-07-12] VITALS (7 sets, daily range): BP systolic 112–147; BP diastolic 52–79; PULSE 82–113; RESP 16–20; TEMP 97.7–98.6; O2SAT 91–97
--- NOTE | 2025-07-12 08:16 | DVHPN2 ---
Reviewed: Care Plan, H&P, Labs, Medications, Previous Orders, Radiology Changes from previous H/P or p: No Changes Objective Vitals Vital Signs Date Time Temp Pulse Resp B/P (MAP) Pulse Ox O2 Delivery O2 Flow Rate FiO2 07/12/25 05:00 97.8 92 18 137/79 (98) 93 97.8 07/11/25 20:00 Room Air* 0 21 Intake/Output Intake and Output 07/12/25 07:00 Intake Total 600 ml Balance 600 ml Intake Oral 600 ml # Voids 3 Medications Current Medications Medications Dose Ordered Sig/Brandon Route Start Time Stop Time Status Last Admin Dose Admin Amiodarone HCl 400 mg DAILY PO 07/11/25 10:00 07/11/25 11:21 400 MG Apixaban 5 mg BID PO 07/10/25 22:00 07/11/25 21:24 5 MG Furosemide 40 mg DAILY PO 07/11/25 10:00 07/11/25 11:21 40 MG Gabapentin 800 mg TID PO 07/10/25 22:00 07/12/25 06:48 800 MG Losartan Potassium 25 mg DAILY PO 07/11/25 10:00 07/11/25 11:22 25 MG Diagnostic Test (Pha) 1 strip ACHS 07/10/25 22:00 07/12/25 06:50 1 STRIP Insulin Human Regular ACHS SC 07/10/25 22:00 07/12/25 06:52 3 UNITS Dextrose 50 ml UD PRN IV 07/10/25 20:45 Ondansetron HCl 4 mg Q4HP PRN IV 07/10/25 20:45 Acetaminophen 650 mg Q6HP PRN PO 07/10/25 20:45 Cyclobenzaprine HCl 10 mg HS PO 07/11/25 22:00 07/11/25 21:25 10 MG Acetaminophen/ Hydrocodone Bitart 1 tab Q6HP PRN PO 07/11/25 12:45 07/11/25 23:25 1 TAB Lorazepam 1 mg ONCE PRN IV 07/11/25 23:00 Laboratory Results Laboratory Tests 07/10/25 17:02 07/11/25 06:08 Urinalysis Test 07/11/25 01:20 Urine Color Light-yellow (Yellow) Urine Clarity Clear (Clear) Urine pH 5.5 (5.0-9.0) Urine Specific [place] 1.017 (1.001-1.035) Urine Protein Negative (Negative) Urine Ketones Negative (Negative) Urine Blood Negative /uL (Negative) Urine Nitrite Negative (Negative) Urine Bilirubin Negative (Negative) Urine Urobilinogen Normal mg/dL (Negative) Urine Leukocyte Esterase Negative /uL (Negative) Urine RBC None seen /hpf (0 - 4) Urine Microscopic WBC 1 /HPF (0-5) Urine Squamous Epithelial Cells Few /hpf (<5) Urine Bacteria None seen /hpf (None Seen) Urine Glucose Normal mg/dL (Normal) Labs and/or images reviewed: Labs reviewed by me, Image(s) reviewed by me Assessment/Plan Assessment/Plan Right-sided numbness: CT head negative, MRI brain negative, carotid ultrasound negative, echocardiogram result pending Neurology consult by Dr. Hi appreciated Rule out CVA Diabetes mellitus insulin sliding scale Hypertension Atrial fibrillation: Eliquis amiodarone History of Breast cancer, in remission Morbid obesity BMI of 58 Peripheral neuropathy: Gabapentin Chronic back pain: [place] 10 Patient says she is not on hospice, she says she is on [facility] Patient's Physical Science Aide Dr. Murillo RN at bedside Plan discussed with: Patient My Orders Orders - BHUPINDER GODINEZ MD Procedure Category Date Status Time Carotid Duplx W Color US 07/11/25 Resulted DOP 12:24 Cyclobenzaprine PHA 07/11/25 In Process Tablet (Flexeril 22:00 Hydrocodone-Acet PHA 07/11/25 In Process 10/325mg Tab ([place] 12:45 Code Status CODE 07/11/25 Transmitted 12:37 Date of Service: Jul 12, 2025 Billing Provider: BHUPINDER GODINEZ MD Common Visit Codes: [id number] INP/OBS CARE(HIGH) BHUPINDER GODINEZ MD Jul 12, 2025 08:16
--- NOTE | 2025-07-12 08:58 | DVHPN2 ---
Progress Note - Dictate Date Seen: Jul 12, 2025 Medical Necessity Reason Pt with a Central, PICC or Fol: No Subjective Ms. Pearson is a 70 years old right-handed female with a history of breast cancer, obesity, anxiety, depression, irregular heart rate on Eliquis, she came to the [facility] on 07/10/2025 with a chief complaint of right-sided weakness. I have seen and examined the patient, I have talked to her nurse, and physical therapist. She reports doing okay, oriented x3, again not a good historian She confirmed the history obtained from yesterday, but she is not aware of AFib, but does confirm on Eliquis for abnormal heart beating She snores mouth, her sleep is not always refreshing, she is sleepy/tired during daytime, he is said to have sleep apnea, but she had difficulty with and is not interested in using CPAP Urinalysis, 07/11/2025: Unremarkable CBC, 07/10/2025: Unremarkable BUN/CR, 07/10/2025: 18/1.12, 07/11/2025: 24/1,14 Carotid Doppler, 07/11/2025: No hemodynamically significant stenosis by velocity criteria. However the right mid to distal internal carotid arteries and bilateral vertebral arteries are not visualized. Recommend CT angiogram neck to evaluate CT head, 07/10/2025: No acute intracranial abnormality MRI head, 07/11/2025: No acute infarct, intracranial hemorrhage, mass effect, or hydrocephalus vital signs Vital Sign Date Time Temp Pulse Resp B/P (MAP) Pulse Ox O2 Delivery O2 Flow Rate FiO2 07/12/25 05:00 97.8 92 18 137/79 (98) 93 97.8 07/11/25 20:00 Room Air* 0 21 Total Intake and Output 07/11/25 07/11/25 07/12/25 15:00 23:00 07:00 Intake Total 500 ml 100 ml Balance 500 ml 100 ml medications Current Medications Medications Dose Ordered Sig/Brandon Route Start Time Stop Time Status Last Admin Dose Admin Amiodarone HCl 400 mg DAILY PO 07/11/25 10:00 07/11/25 11:21 400 MG Apixaban 5 mg BID PO 07/10/25 22:00 07/11/25 21:24 5 MG Furosemide 40 mg DAILY PO 07/11/25 10:00 07/11/25 11:21 40 MG Gabapentin 800 mg TID PO 07/10/25 22:00 07/12/25 06:48 800 MG Losartan Potassium 25 mg DAILY PO 07/11/25 10:00 07/11/25 11:22 25 MG Diagnostic Test (Pha) 1 strip ACHS 07/10/25 22:00 07/12/25 06:50 1 STRIP Insulin Human Regular ACHS SC 07/10/25 22:00 07/12/25 06:52 3 UNITS Dextrose 50 ml UD PRN IV 07/10/25 20:45 Ondansetron HCl 4 mg Q4HP PRN IV 07/10/25 20:45 Acetaminophen 650 mg Q6HP PRN PO 07/10/25 20:45 Cyclobenzaprine HCl 10 mg HS PO 07/11/25 22:00 07/11/25 21:25 10 MG Acetaminophen/ Hydrocodone Bitart 1 tab Q6HP PRN PO 07/11/25 12:45 07/11/25 23:25 1 TAB Lorazepam 1 mg ONCE PRN IV 07/11/25 23:00 objective General: the patient is well developed and nourished. No acute distress. Tenderness to palpation in the right neck MENTAL STATUS: Subjective SPEECH, LANGUAGE, HIGHER CORTICAL FUNCTION: no aphasia or dysathria. CRANIAL NERVES: Pupils are equal, round and reactive. EOMs full and conjugate. Facial sensation intact in all three divisions bilaterally. Mandibular strength intact. Facial muscles symmetrical and strength intact. Tongue midline. No fasciculations or atrophy. SENSATION: Sensation to touch and pinprick is diminished in the right arm than leg MOTOR: Normal tone in the upper and lower extremity. Normal muscle bulk. No fasciculations. No abnormal movements or posturing. Muscle strength of the major groups in the upper extremities is 4/5 with the right slightly weaker. Muscle strength of the major groups in the lower extremities is 4/5 with the right leg weaker. REFLEXES: Deep tendon reflexes are symmetrical. No pathological reflexes. CEREBELLAR/COORDINATION: Finger to nose unremarkable bilaterally GAIT/STATION: deferred. laboratory and microbiology Laboratory Tests 07/11/25 06:08 07/10/25 17:02 Test 07/11/25 06:08 Range/Units Serum Glucose 142 H 74-106 mg/dL Problem List Right-sided weakness with unremarkable MRI scan New onset right neck pain Gait disturbance Irregular heart rate on Eliquis Morbid obesity Sleep-related breathing disorder/sleep apnea Assessment/Plan Monitoring Supportive treatment MRI C-spine Eliquis 5 mg b.i.d. Amiodarone 400 mg daily Current pain management Weight control APAP in the hospital when she is ready Up to chair Physical therapy More recommendation per clinical course This medical document was created using an electronic medical record system with [employer] dictation system. Although this document has been carefully reviewed, there may still be some phonetic and typographical errors. These areas are purely typographical due to imperfections of the software programs, and do not reflect any compromise in the patient's medical care. Prognosis poor Plan discussed with: Patient, Other Total Time (mins): 45 SUSANNE MELTON MD Jul 12, 2025 08:58
--- NOTE | 2025-07-12 11:50 | DVH ---
PROCEDURE: MRI CERVICAL WO CONTRAST Indication: Neck pain COMPARISON: None TECHNIQUE: Multiplanar multisequence images of the the cervical spine are obtained. FINDINGS: Examination severely degraded by motion. Cervical heights maintained. Moderate to severe multilevel disc space narrowing and desiccation. Re versal normal cervical spine curvature. No prevertebral edema. C2-3: Discm osteophyte complex narrowing ventral and dorsal CSF spaces. Thecal sac measures 6 mm AP. Moderate spinal canal stenosis. Severe left and moderate right neural foraminal stenosis. C3-4: Small disc osteophyte complex. Thecal sac measures 9 mm AP. Mild spinal canal stenosis. Sever e right and moderate left neural foraminal stenosis. C4-5: Disc osteophyte complex narrowing the ventral CSF space. Thecal sac measures 8 mm AP. Mild-to -moderate spinal canal stenosis. Severe bilateral neural foraminal stenosis. C5-6: Disc osteophyte complex narrowing the ventral CSF space. Dorsal CSF space narrowed. Thecal sa c measures 8 mm AP. Uwys-xs-gkelaylz spinal canal stenosis. Severe bilateral neural foraminal steno sis. C6-7: Disc osteophyte complex narrowing the ventral and dorsal CSF spaces. Thecal sac measures 8 mm A P. Nspe-hd-nlahmmcu spinal canal stenosis. Severe bilateral neural foraminal stenosis. C7-T1: Disc osteophyte complex narrowing the ventral and dorsal CSF spaces. Thecal sac measures 9 mm AP. Mild spinal canal stenosis. Moderate to severe bilateral neural foraminal stenosis. IMPRESSION: Examination markedly degraded by motion. Moderate to severe cervical degenerative disc disease. Moderate spinal canal stenosis at C2-3. Aniw-el-amdbevto spinal canal stenosis at C4-5, C5-6, C6-7. Mild spinal canal stenosis at C3-4, C7-T1. Multilevel moderate to severe neural foraminal stenosis as described.
--- NOTE | 2025-07-12 19:46 | DVHSR ---
APPROVED REPORT EXAM: Two-dimensional and M-mode echocardiogram with Doppler and color Doppler. Blood Pressure: 145/94 mmHg INDICATION right sided numbness r/o cva RISK FACTORS Obesity: Height: 5'6, Weight: 363 DIMENSIONS LVDd (3.8-5.7cm)LA (2D)4.3 (1.9-4.0cm)Aortic Root (2.0-3.7cm) EF (%) 55.0 (55-70%)Rt. Atrium3.9 (1.9-4.0cm)Asc. Aorta cm Mitral Valve MitralMitral Stenosis E wave0.66m/sMV Mean GR.mmHg A wave0.97m/sMV Peak GR.97mmHg E/A ratio0.72D MVAcm2 DECEL [id number] 1/2 Timems Aortic Valve Aortic ValveAortic Stenosis V11.60m/Amparo Mean GR.13mmHg V22.35m/Amparo Peak GR.23mmHg LVOT Diameter2.0 (1.8-2.4cm)Doppler AVA2.14cm2 AI P 1/2 Vzrg065.94ms Tricuspid Valve TR Velocity2.92m/s [id number] Conclusion Sinus rhythm. Off axis views. There appears to be mild concentric LVH. Mild left atrial enlargement. Mild sigmoid septum noted. There is moderate aortic sclerosis from the limited views obtained. The mitral and tricuspid appear to be structurally normal. The pulmonic is not clearly visualized. Left ventricular function is preserved at 60% with normal RV function. There is aftnrbvi-vh-ocvdxd aortic insufficiency. Moderate tricuspid regurgitation. No pericardial effusion masses or vegetations.
[2025-07-13] VITALS (7 sets, daily range): BP systolic 107–139; BP diastolic 59–79; PULSE 83–102; RESP 18–19; TEMP 97.9–98.5; O2SAT 94–96
[2025-07-13] MEDS: ACETAMINOPHEN 325 MG TAB PO PRN (13:10)
--- NOTE | 2025-07-13 13:51 | DVHPN2 ---
Reviewed: Care Plan, H&P, Labs, Medications, Previous Orders, Radiology Changes from previous H/P or p: No Changes General: Per HPI Objective Vitals Vital Signs Date Time Temp Pulse Resp B/P (MAP) Pulse Ox O2 Delivery O2 Flow Rate FiO2 07/13/25 09:17 120/79 07/13/25 09:00 98.4 95 18 94 98.4 07/13/25 08:16 Room Air* 0 21 Intake/Output Intake and Output 07/13/25 06:59 Intake Total 1420 ml Output Total 1000 ml Balance 420 ml Intake Oral 1420 ml Output Urine Total 1000 ml # Voids 2 # Bowel Movements 2 General Appearance: Alert, Oriented X3, Cooperative Cardiovascular: Regular rate, Normal S1, Normal S2 Medications Current Medications Medications Dose Ordered Sig/Brandon Route Start Time Stop Time Status Last Admin Dose Admin Amiodarone HCl 400 mg DAILY PO 07/11/25 10:00 07/13/25 09:16 400 MG Apixaban 5 mg BID PO 07/10/25 22:00 07/13/25 09:17 5 MG Furosemide 40 mg DAILY PO 07/11/25 10:00 07/13/25 09:16 40 MG Gabapentin 800 mg TID PO 07/10/25 22:00 07/13/25 13:10 800 MG Losartan Potassium 25 mg DAILY PO 07/11/25 10:00 07/13/25 09:17 25 MG Diagnostic Test (Pha) 1 strip ACHS 07/10/25 22:00 07/13/25 11:41 1 STRIP Insulin Human Regular ACHS SC 07/10/25 22:00 07/13/25 11:40 3 UNITS Dextrose 50 ml UD PRN IV 07/10/25 20:45 Ondansetron HCl 4 mg Q4HP PRN IV 07/10/25 20:45 Acetaminophen 650 mg Q6HP PRN PO 07/10/25 20:45 07/13/25 13:10 650 MG Cyclobenzaprine HCl 10 mg HS PO 07/11/25 22:00 07/12/25 22:58 10 MG Acetaminophen/ Hydrocodone Bitart 1 tab Q6HP PRN PO 07/11/25 12:45 07/13/25 09:18 1 TAB Lorazepam 1 mg ONCE PRN IV 07/11/25 23:00 Laboratory Results Laboratory Tests 07/10/25 17:02 07/11/25 06:08 Urinalysis Test 07/11/25 01:20 Urine Color Light-yellow (Yellow) Urine Clarity Clear (Clear) Urine pH 5.5 (5.0-9.0) Urine Specific [place] 1.017 (1.001-1.035) Urine Protein Negative (Negative) Urine Ketones Negative (Negative) Urine Blood Negative /uL (Negative) Urine Nitrite Negative (Negative) Urine Bilirubin Negative (Negative) Urine Urobilinogen Normal mg/dL (Negative) Urine Leukocyte Esterase Negative /uL (Negative) Urine RBC None seen /hpf (0 - 4) Urine Microscopic WBC 1 /HPF (0-5) Urine Squamous Epithelial Cells Few /hpf (<5) Urine Bacteria None seen /hpf (None Seen) Urine Glucose Normal mg/dL (Normal) Labs and/or images reviewed: Labs reviewed by me Assessment/Plan Assessment/Plan Right-sided numbness: CT head negative, MRI brain negative, carotid ultrasound negative, echocardiogram result pending Neurology consult by Dr. Hi appreciated Rule out CVA Diabetes mellitus insulin sliding scale Hypertension chest pain, non cardiac Atrial fibrillation: Eliquis amiodarone History of Breast cancer, in remission Morbid obesity BMI of 58 Peripheral neuropathy: Gabapentin Chronic back pain: [place] 10 weakness dizziness Patient says she is not on hospice, she says she is on [facility] Patient's Area Secretary Dr. Murillo Plan discussed with: Patient Date of Service: Jul 13, 2025 Billing Provider: JULEE DOYLE DO Common Visit Codes: [id number] INP/OBS CARE(HIGH) JULEE DOYLE DO Jul 13, 2025 13:51
[2025-07-13] MEDS: GABAPENTIN 300 MG CAP PO SCH (21:01)
[2025-07-14] VITALS (7 sets, daily range): BP systolic 91–126; BP diastolic 61–76; PULSE 59–92; RESP 16–19; TEMP 97.8–99; O2SAT 92–96
[2025-07-14] MEDS: DOCUSATE SOD 100 MG CAP PO ONE (14:41)
--- NOTE | 2025-07-14 14:56 | DVH ---
CHEST RADIOGRAPH Indication: coughin, chest pain Technique: Single frontal view of the chest was obtained COMPARISON: CR CHEST 2 VIEW on DOS: 07/05/24, XY CHEST TWO VIEWS ROUTINE on DOS: 01/25/23 FINDINGS: Lines and Tubes: Right chest port in satisfactory position Lungs: Congestion Pleura: No effusion. No pneumothorax. Cardiomediastinal contours: Unremarkable Bones: Unremarkable IMPRESSION: Increased interstital prominence. This may represent pulmonary vascular congestion and/or viral pneum onia. Clinical correlation advised.
[2025-07-14] MEDS: DOCUSATE SOD 100 MG CAP PO SCH (21:42)
[2025-07-15] VITALS (7 sets, daily range): BP systolic 108–127; BP diastolic 59–83; PULSE 78–85; RESP 18–19; TEMP 97.8–99.3; O2SAT 90–94
--- NOTE | 2025-07-15 20:02 | DVHPN2 ---
Progress Note - Dictate Date Seen: Jul 15, 2025 Medical Necessity Reason Pt with a Central, PICC or Fol: No Subjective This is not a follow up note Urinalysis, 07/11/2025: Unremarkable CBC, 07/10/2025: Unremarkable BUN/CR, 07/10/2025: 18/1.12, 07/11/2025: 24/1,14 Carotid Doppler, 07/11/2025: No hemodynamically significant stenosis by velocity criteria. However the right mid to distal internal carotid arteries and bilateral vertebral arteries are not visualized. Recommend CT angiogram neck to evaluate CT head, 07/10/2025: No acute intracranial abnormality MRI head, 07/11/2025: No acute infarct, intracranial hemorrhage, mass effect, or hydrocephalus MRI c-spine, 07/12/2025: Examination markedly degraded by motion. Moderate to severe cervical degenerative disc disease. Moderate spinal canal stenosis at C2- 3. [id number] spinal canal stenosis at C4-5, C5-6, C6-7. Mild spinal canal stenosis at C3-4, C7-T1. Multilevel moderate to severe neural foraminal stenosis as described General: the patient is well developed and nourished. No acute distress. MENTAL STATUS: Awake and alert. Oriented to person, place, time SPEECH, LANGUAGE, HIGHER CORTICAL FUNCTION: no aphasia or dysathria. CRANIAL NERVES: Pupils are equal, round and reactive. EOMs full and conjugate. Facial sensation intact in all three divisions bilaterally. Mandibular strength intact. Facial muscles symmetrical and strength intact. Tongue midline. No fasciculations or atrophy. SENSATION: Sensation to touch and pinprick is diminished in the right arm than leg MOTOR: Normal tone in the upper and lower extremity. Normal muscle bulk. No fasciculations. No abnormal movements or posturing. Muscle strength of the major groups in the upper extremities is 4/5 with the right slightly weaker. Muscle strength of the major groups in the lower extremities is 4/5 with the right leg weaker. REFLEXES: Deep tendon reflexes are symmetrical. No pathological reflexes. CEREBELLAR/COORDINATION: Finger to nose unremarkable bilaterally GAIT/STATION: deferred. Right-sided weakness with unremarkable MRI scan New onset right neck pain Gait disturbance AFib Monitoring Supportive treatment Eliquis 5 mg b.i.d. Amiodarone 400 mg daily Current pain management Up to chair Physical therapy More recommendation per clinical course Prognosis: Poor Time spent is 55 minutes This medical document was created using an electronic medical record system with [employer] computerized dictation system. Although this document has been carefully reviewed, there may still be some phonetic and typographical errors. These areas are purely typographical due to imperfections of the software programs, and do not reflect any compromise in the patient's medical care. vital signs Vital Sign Date Time Temp Pulse Resp B/P (MAP) Pulse Ox O2 Delivery O2 Flow Rate FiO2 07/15/25 17:00 98.2 78 18 118/62 (80) 94 98.2 07/15/25 07:52 Room Air* 0 21 Total Intake and Output 07/14/25 07/14/25 07/15/25 15:00 23:00 07:00 Intake Total 1500 ml 500 ml Balance 1500 ml 500 ml medications Current Medications Medications Dose Ordered Sig/Brandon Route Start Time Stop Time Status Last Admin Dose Admin Amiodarone HCl 400 mg DAILY PO 07/11/25 10:00 07/15/25 07:51 400 MG Apixaban 5 mg BID PO 07/10/25 22:00 07/15/25 07:50 5 MG Furosemide 40 mg DAILY PO 07/11/25 10:00 07/15/25 07:51 40 MG Losartan Potassium 25 mg DAILY PO 07/11/25 10:00 07/15/25 07:50 25 MG Diagnostic Test (Pha) 1 strip ACHS 07/10/25 22:00 07/15/25 16:19 1 STRIP Insulin Human Regular ACHS SC 07/10/25 22:00 07/15/25 11:14 4 UNITS Dextrose 50 ml UD PRN IV 07/10/25 20:45 Ondansetron HCl 4 mg Q4HP PRN IV 07/10/25 20:45 Acetaminophen 650 mg Q6HP PRN PO 07/10/25 20:45 07/15/25 11:15 650 MG Cyclobenzaprine HCl 10 mg HS PO 07/11/25 22:00 07/14/25 21:42 10 MG Acetaminophen/ Hydrocodone Bitart 1 tab Q6HP PRN PO 07/11/25 12:45 07/15/25 06:08 1 TAB Lorazepam 1 mg ONCE PRN IV 07/11/25 23:00 Gabapentin 600 mg TID PO 07/13/25 22:00 07/15/25 13:16 600 MG Docusate Sodium 100 mg BID PO 07/14/25 22:00 07/15/25 07:50 100 MG objective General: the patient is well developed and nourished. No acute distress. Tenderness to palpation in the right neck MENTAL STATUS: Subjective SPEECH, LANGUAGE, HIGHER CORTICAL FUNCTION: no aphasia or dysathria. CRANIAL NERVES: Pupils are equal, round and reactive. EOMs full and conjugate. Facial sensation intact in all three divisions bilaterally. Mandibular strength intact. Facial muscles symmetrical and strength intact. Tongue midline. No fasciculations or atrophy. SENSATION: Sensation to touch and pinprick is diminished in the right arm than leg MOTOR: Normal tone in the upper and lower extremity. Normal muscle bulk. No fasciculations. No abnormal movements or posturing. Muscle strength of the major groups in the upper extremities is 4/5 with the right slightly weaker. Muscle strength of the major groups in the lower extremities is 4/5 with the right leg weaker. REFLEXES: Deep tendon reflexes are symmetrical. No pathological reflexes. CEREBELLAR/COORDINATION: Finger to nose unremarkable bilaterally GAIT/STATION: deferred. laboratory and microbiology Laboratory Tests 07/11/25 06:08 07/10/25 17:02 Test 07/11/25 06:08 Range/Units Serum Glucose 142 H 74-106 mg/dL Problem List Right-sided weakness with unremarkable MRI scan New onset right neck pain Gait disturbance Irregular heart rate on Eliquis Morbid obesity Sleep-related breathing disorder/sleep apnea Assessment/Plan Monitoring Supportive treatment MRI C-spine Eliquis 5 mg b.i.d. Amiodarone 400 mg daily Current pain management Weight control APAP in the hospital when she is ready Up to chair Physical therapy More recommendation per clinical course This medical document was created using an electronic medical record system with [employer] dictation system. Although this document has been carefully reviewed, there may still be some phonetic and typographical errors. These areas are purely typographical due to imperfections of the software programs, and do not reflect any compromise in the patient's medical care. Dietary Evaluation Review Comments: CCHO-60 Cardiac diet Expected Outcomes/Goals: wt loss, controlled blood sugar Plan discussed with: Other SUSANNE MELTON MD Jul 15, 2025 20:02
--- NOTE | 2025-07-15 20:36 | DVHPN2 ---
Progress Note - Dictate Date Seen: Jul 15, 2025 Medical Necessity Reason Pt with a Central, PICC or Fol: No Subjective Ms. Pearson is a 70 years old right-handed female with a history of breast cancer, obesity, anxiety, depression, irregular heart rate on Eliquis, she came to the [facility] on 07/10/2025 with a chief complaint of right-sided weakness. I have seen and examined the patient, I have talked to her nurse, and physical therapist. She reports doing okay, oriented x3, again not a good historian She has mild pain in the neck She reports having right-sided weakness since chemotherapy in 11/2021 She confirmed the history obtained from yesterday, but she is not aware of AFib, but does confirm on Eliquis for abnormal heart beating She snores, her sleep is not always refreshing, she is sleepy/tired during daytime, he was said to have sleep apnea, but she had difficulty with and is not interested in using CPAP Urinalysis, 07/11/2025: Unremarkable CBC, 07/10/2025: Unremarkable BUN/CR, 07/10/2025: 18/1.12, 07/11/2025: 24/1,14 Carotid Doppler, 07/11/2025: No hemodynamically significant stenosis by velocity criteria. However the right mid to distal internal carotid arteries and bilateral vertebral arteries are not visualized. Recommend CT angiogram neck to evaluate CT head, 07/10/2025: No acute intracranial abnormality MRI head, 07/11/2025: No acute infarct, intracranial hemorrhage, mass effect, or hydrocephalus MRI c-spine, 07/12/2025: Examination markedly degraded by motion. Moderate to severe cervical degenerative disc disease. Moderate spinal canal stenosis at C2- 3. [id number] spinal canal stenosis at C4-5, C5-6, C6-7. Mild spinal canal stenosis at C3-4, C7-T1. Multilevel moderate to severe neural foraminal stenosis as described vital signs Vital Sign Date Time Temp Pulse Resp B/P (MAP) Pulse Ox O2 Delivery O2 Flow Rate FiO2 07/15/25 17:00 98.2 78 18 118/62 (80) 94 98.2 07/15/25 07:52 Room Air* 0 21 Total Intake and Output 07/14/25 07/14/25 07/15/25 15:00 23:00 07:00 Intake Total 1500 ml 500 ml Balance 1500 ml 500 ml medications Current Medications Medications Dose Ordered Sig/Brandon Route Start Time Stop Time Status Last Admin Dose Admin Amiodarone HCl 400 mg DAILY PO 07/11/25 10:00 07/15/25 07:51 400 MG Apixaban 5 mg BID PO 07/10/25 22:00 07/15/25 07:50 5 MG Furosemide 40 mg DAILY PO 07/11/25 10:00 07/15/25 07:51 40 MG Losartan Potassium 25 mg DAILY PO 07/11/25 10:00 07/15/25 07:50 25 MG Diagnostic Test (Pha) 1 strip ACHS 07/10/25 22:00 07/15/25 16:19 1 STRIP Insulin Human Regular ACHS SC 07/10/25 22:00 07/15/25 11:14 4 UNITS Dextrose 50 ml UD PRN IV 07/10/25 20:45 Ondansetron HCl 4 mg Q4HP PRN IV 07/10/25 20:45 Acetaminophen 650 mg Q6HP PRN PO 07/10/25 20:45 07/15/25 11:15 650 MG Cyclobenzaprine HCl 10 mg HS PO 07/11/25 22:00 07/14/25 21:42 10 MG Acetaminophen/ Hydrocodone Bitart 1 tab Q6HP PRN PO 07/11/25 12:45 07/15/25 06:08 1 TAB Lorazepam 1 mg ONCE PRN IV 07/11/25 23:00 Gabapentin 600 mg TID PO 07/13/25 22:00 07/15/25 13:16 600 MG Docusate Sodium 100 mg BID PO 07/14/25 22:00 07/15/25 07:50 100 MG objective General: the patient is well developed and nourished. No acute distress. MENTAL STATUS: Subjective SPEECH, LANGUAGE, HIGHER CORTICAL FUNCTION: no aphasia or dysathria. CRANIAL NERVES: Pupils are equal, round and reactive. EOMs full and conjugate. Facial sensation intact in all three divisions bilaterally. Mandibular strength intact. Facial muscles symmetrical and strength intact. Tongue midline. No fasciculations or atrophy. SENSATION: Sensation to touch and pinprick is diminished in the right arm than leg MOTOR: Normal tone in the upper and lower extremity. Normal muscle bulk. No fasciculations. No abnormal movements or posturing. Muscle strength of the major groups in the extremities is 4/5 with the right arm and leg weaker. REFLEXES: Deep tendon reflexes are symmetrical. No pathological reflexes. CEREBELLAR/COORDINATION: Finger to nose unremarkable bilaterally GAIT/STATION: deferred. laboratory and microbiology Laboratory Tests 07/11/25 06:08 07/10/25 17:02 Test 07/11/25 06:08 Range/Units Serum Glucose 142 H 74-106 mg/dL Problem List Right-sided weakness with unremarkable MRI scan New onset right neck pain resolving Gait disturbance Irregular heart rate on Eliquis Morbid obesity Sleep-related breathing disorder/sleep apnea Assessment/Plan Monitoring Supportive treatment Eliquis 5 mg b.i.d. Amiodarone 400 mg daily Current pain management Up to chair Physical therapy More recommendation per clinical course Okay to discharge from neurologic point of view This medical document was created using an electronic medical record system with [employer] dictation system. Although this document has been carefully reviewed, there may still be some phonetic and typographical errors. These areas are purely typographical due to imperfections of the software programs, and do not reflect any compromise in the patient's medical care. Prognosis poor Dietary Evaluation Review Comments: CCHO-60 Cardiac diet Expected Outcomes/Goals: wt loss, controlled blood sugar Plan discussed with: Patient, Other Total Time (mins): 35 SUSANNE MELTON MD Jul 15, 2025 20:36
--- NOTE | 2025-07-15 21:31 | DVHPN2 ---
Reviewed: Care Plan, H&P, Labs, Medications, Previous Orders, Radiology Changes from previous H/P or p: No Changes General: Per HPI Objective Vitals Vital Signs Date Time Temp Pulse Resp B/P (MAP) Pulse Ox O2 Delivery O2 Flow Rate FiO2 07/15/25 17:00 98.2 78 18 118/62 (80) 94 98.2 07/15/25 07:52 Room Air* 0 21 Intake/Output Intake and Output 07/15/25 07:00 Intake Total 2000 ml Balance 2000 ml Intake Oral 2000 ml # Voids 7 General Appearance: Alert, Oriented X3, Cooperative Cardiovascular: Regular rate, Normal S1, Normal S2 Medications Current Medications Medications Dose Ordered Sig/Brandon Route Start Time Stop Time Status Last Admin Dose Admin Amiodarone HCl 400 mg DAILY PO 07/11/25 10:00 07/15/25 07:51 400 MG Apixaban 5 mg BID PO 07/10/25 22:00 07/15/25 07:50 5 MG Furosemide 40 mg DAILY PO 07/11/25 10:00 07/15/25 07:51 40 MG Losartan Potassium 25 mg DAILY PO 07/11/25 10:00 07/15/25 07:50 25 MG Diagnostic Test (Pha) 1 strip ACHS 07/10/25 22:00 07/15/25 16:19 1 STRIP Insulin Human Regular ACHS SC 07/10/25 22:00 07/15/25 11:14 4 UNITS Dextrose 50 ml UD PRN IV 07/10/25 20:45 Ondansetron HCl 4 mg Q4HP PRN IV 07/10/25 20:45 Acetaminophen 650 mg Q6HP PRN PO 07/10/25 20:45 07/15/25 11:15 650 MG Cyclobenzaprine HCl 10 mg HS PO 07/11/25 22:00 07/14/25 21:42 10 MG Acetaminophen/ Hydrocodone Bitart 1 tab Q6HP PRN PO 07/11/25 12:45 07/15/25 06:08 1 TAB Lorazepam 1 mg ONCE PRN IV 07/11/25 23:00 Gabapentin 600 mg TID PO 07/13/25 22:00 07/15/25 13:16 600 MG Docusate Sodium 100 mg BID PO 07/14/25 22:00 07/15/25 07:50 100 MG Laboratory Results Laboratory Tests 07/10/25 17:02 07/11/25 06:08 Urinalysis Test 07/11/25 01:20 Urine Color Light-yellow (Yellow) Urine Clarity Clear (Clear) Urine pH 5.5 (5.0-9.0) Urine Specific [place] 1.017 (1.001-1.035) Urine Protein Negative (Negative) Urine Ketones Negative (Negative) Urine Blood Negative /uL (Negative) Urine Nitrite Negative (Negative) Urine Bilirubin Negative (Negative) Urine Urobilinogen Normal mg/dL (Negative) Urine Leukocyte Esterase Negative /uL (Negative) Urine RBC None seen /hpf (0 - 4) Urine Microscopic WBC 1 /HPF (0-5) Urine Squamous Epithelial Cells Few /hpf (<5) Urine Bacteria None seen /hpf (None Seen) Urine Glucose Normal mg/dL (Normal) Labs and/or images reviewed: Labs reviewed by me, Image(s) reviewed by me Assessment/Plan Assessment/Plan Right-sided numbness: CT head negative, MRI brain negative, carotid ultrasound negative, echocardiogram result pending Neurology consult by Dr. 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 Murillo Plan discussed with: Patient Date of Service: Jul 14, 2025 Billing Provider: JULEE DOYLE DO Common Visit Codes: [id number] INP/OBS CARE(HIGH) JULEE DOYLE DO Jul 15, 2025 21:31
--- NOTE | 2025-07-15 21:31 | DVHPN2 ---
Reviewed: Care Plan, H&P, Labs, Medications, Previous Orders, Radiology Changes from previous H/P or p: No Changes General: Per HPI Objective Vitals Vital Signs Date Time Temp Pulse Resp B/P (MAP) Pulse Ox O2 Delivery O2 Flow Rate FiO2 07/15/25 17:00 98.2 78 18 118/62 (80) 94 98.2 07/15/25 07:52 Room Air* 0 21 Intake/Output Intake and Output 07/15/25 07:00 Intake Total 2000 ml Balance 2000 ml Intake Oral 2000 ml # Voids 7 General Appearance: Alert, Oriented X3, Cooperative Cardiovascular: Regular rate, Normal S1, Normal S2 Medications Current Medications Medications Dose Ordered Sig/Brandon Route Start Time Stop Time Status Last Admin Dose Admin Amiodarone HCl 400 mg DAILY PO 07/11/25 10:00 07/15/25 07:51 400 MG Apixaban 5 mg BID PO 07/10/25 22:00 07/15/25 07:50 5 MG Furosemide 40 mg DAILY PO 07/11/25 10:00 07/15/25 07:51 40 MG Losartan Potassium 25 mg DAILY PO 07/11/25 10:00 07/15/25 07:50 25 MG Diagnostic Test (Pha) 1 strip ACHS 07/10/25 22:00 07/15/25 16:19 1 STRIP Insulin Human Regular ACHS SC 07/10/25 22:00 07/15/25 11:14 4 UNITS Dextrose 50 ml UD PRN IV 07/10/25 20:45 Ondansetron HCl 4 mg Q4HP PRN IV 07/10/25 20:45 Acetaminophen 650 mg Q6HP PRN PO 07/10/25 20:45 07/15/25 11:15 650 MG Cyclobenzaprine HCl 10 mg HS PO 07/11/25 22:00 07/14/25 21:42 10 MG Acetaminophen/ Hydrocodone Bitart 1 tab Q6HP PRN PO 07/11/25 12:45 07/15/25 06:08 1 TAB Lorazepam 1 mg ONCE PRN IV 07/11/25 23:00 Gabapentin 600 mg TID PO 07/13/25 22:00 07/15/25 13:16 600 MG Docusate Sodium 100 mg BID PO 07/14/25 22:00 07/15/25 07:50 100 MG Laboratory Results Laboratory Tests 07/10/25 17:02 07/11/25 06:08 Urinalysis Test 07/11/25 01:20 Urine Color Light-yellow (Yellow) Urine Clarity Clear (Clear) Urine pH 5.5 (5.0-9.0) Urine Specific [place] 1.017 (1.001-1.035) Urine Protein Negative (Negative) Urine Ketones Negative (Negative) Urine Blood Negative /uL (Negative) Urine Nitrite Negative (Negative) Urine Bilirubin Negative (Negative) Urine Urobilinogen Normal mg/dL (Negative) Urine Leukocyte Esterase Negative /uL (Negative) Urine RBC None seen /hpf (0 - 4) Urine Microscopic WBC 1 /HPF (0-5) Urine Squamous Epithelial Cells Few /hpf (<5) Urine Bacteria None seen /hpf (None Seen) Urine Glucose Normal mg/dL (Normal) Assessment/Plan Assessment/Plan Right-sided numbness: CT head negative, MRI brain negative, carotid ultrasound negative, echocardiogram result pending Neurology consult by Dr. 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 Murillo Plan discussed with: Patient Date of Service: Jul 15, 2025 Billing Provider: JULEE DOYLE DO Common Visit Codes: [id number] INP/OBS CARE(HIGH) JULEE DOYLE DO Jul 15, 2025 21:31
[2025-07-16 01:00] VITALS: BP 99/83; PULSE 83; RESP 18; TEMP 97.6; O2SAT 95
[2025-07-16 04:49] VITALS: BP 133/90; PULSE 87; RESP 18; TEMP 97.3; O2SAT 90
[2025-07-16] MEDS ORDERED: GABA-1250 PO (07:18)
--- NOTE | 2025-07-16 08:36 | DVHPN2 ---
Reviewed: Care Plan, H&P, Labs, Medications, Previous Orders, Radiology Changes from previous H/P or p: No Changes General: Per HPI Objective Vitals Vital Signs Date Time Temp Pulse Resp B/P (MAP) Pulse Ox O2 Delivery O2 Flow Rate FiO2 07/16/25 04:49 97.3 87 18 133/90 (104) 90 97.3 07/15/25 20:00 Room Air* 0 21 Intake/Output Intake and Output 07/16/25 07:00 Intake Total 2315 ml Balance 2315 ml Intake Oral 2315 ml # Voids 5 # Bowel Movements 2 General Appearance: Alert, Oriented X3, Cooperative Cardiovascular: Regular rate, Normal S1, Normal S2 Medications Current Medications Medications Dose Ordered Sig/Brandon Route Start Time Stop Time Status Last Admin Dose Admin Amiodarone HCl 400 mg DAILY PO 07/11/25 10:00 07/15/25 07:51 400 MG Apixaban 5 mg BID PO 07/10/25 22:00 07/15/25 21:50 5 MG Furosemide 40 mg DAILY PO 07/11/25 10:00 07/15/25 07:51 40 MG Losartan Potassium 25 mg DAILY PO 07/11/25 10:00 07/15/25 07:50 25 MG Diagnostic Test (Pha) 1 strip ACHS 07/10/25 22:00 07/16/25 06:05 1 STRIP Insulin Human Regular ACHS SC 07/10/25 22:00 07/16/25 05:58 3 UNITS Dextrose 50 ml UD PRN IV 07/10/25 20:45 Ondansetron HCl 4 mg Q4HP PRN IV 07/10/25 20:45 Acetaminophen 650 mg Q6HP PRN PO 07/10/25 20:45 07/16/25 06:02 650 MG Cyclobenzaprine HCl 10 mg HS PO 07/11/25 22:00 07/15/25 21:49 10 MG Acetaminophen/ Hydrocodone Bitart 1 tab Q6HP PRN PO 07/11/25 12:45 07/16/25 01:00 1 TAB Lorazepam 1 mg ONCE PRN IV 07/11/25 23:00 Gabapentin 600 mg TID PO 07/13/25 22:00 07/16/25 06:02 600 MG Docusate Sodium 100 mg BID PO 07/14/25 22:00 07/15/25 07:50 100 MG Laboratory Results Laboratory Tests 07/10/25 17:02 07/11/25 06:08 Urinalysis Test 07/11/25 01:20 Urine Color Light-yellow (Yellow) Urine Clarity Clear (Clear) Urine pH 5.5 (5.0-9.0) Urine Specific [place] 1.017 (1.001-1.035) Urine Protein Negative (Negative) Urine Ketones Negative (Negative) Urine Blood Negative /uL (Negative) Urine Nitrite Negative (Negative) Urine Bilirubin Negative (Negative) Urine Urobilinogen Normal mg/dL (Negative) Urine Leukocyte Esterase Negative /uL (Negative) Urine RBC None seen /hpf (0 - 4) Urine Microscopic WBC 1 /HPF (0-5) Urine Squamous Epithelial Cells Few /hpf (<5) Urine Bacteria None seen /hpf (None Seen) Urine Glucose Normal mg/dL (Normal) Labs and/or images reviewed: Labs reviewed by me, Image(s) reviewed by me Assessment/Plan Assessment/Plan Right-sided numbness: CT head negative, MRI brain negative, carotid ultrasound negative, echocardiogram 60 percent ejection fraction Neurology consult by Dr. Hi appreciated CVA ruled out Diabetes mellitus insulin sliding scale Hypertension Atrial fibrillation: Eliquis amiodarone History of Breast cancer, in remission Morbid obesity BMI of 58 Peripheral neuropathy: Gabapentin Chronic back pain: [place] 10 Patient says she is not on hospice, she says she is on [facility] Patient's Claims Adjustor Dr. Murillo RN at bedside Cleared for discharge by Neurology Plan discussed with: Patient Date of Service: Jul 16, 2025 Billing Provider: BHUPINDER GODINEZ MD Common Visit Codes: [id number] INP/OBS CARE(HIGH) BHUPINDER GODINEZ MD Jul 16, 2025 08:36
[2025-07-16 09:00] VITALS: BP 94/66; PULSE 84; RESP 18; TEMP 98.6; O2SAT 90
--- NOTE | 2025-07-16 09:25 | DVHDS2 ---
Discharge Summary Date of Admission Jul 10, 2025 at 19:53 Date of Discharge: Jul 16, 2025 Admitting Diagnosis Right-sided weakness Wounds: None Labs/Diagnostic Data: Laboratory Results Test 07/16/25 05:37 07/11/25 06:08 07/11/25 01:20 07/10/25 17:02 POC Glucose 173 mg/dl (70-106) Sodium Level 144 mmol/L (136-145) Potassium Level 4.4 mmol/L (3.5-5.1) Chloride Level 108 mmol/L (98-107) Carbon Dioxide Level 26 mmol/L (20-31) Anion Gap 10 (5-15) Blood Urea Nitrogen 24 mg/dL (9-23) Creatinine 1.14 mg/dL (0.550-1.02) Glomerular Filtration Rate Calc 52 mL/min (>90) BUN/Creatinine Ratio 21.1 (10.0-20.0) Serum Glucose 142 mg/dL (74-106) Calcium Level 8.5 mg/dL (8.7-10.4) Urine Color Light-yellow (Yellow) Urine Clarity Clear (Clear) Urine pH 5.5 (5.0-9.0) Urine Specific [place] 1.017 (1.001-1.035) Urine Protein Negative (Negative) Urine Ketones Negative (Negative) Urine Blood Negative /uL (Negative) Urine Nitrite Negative (Negative) Urine Bilirubin Negative (Negative) Urine Urobilinogen Normal mg/dL (Negative) Urine Leukocyte Esterase Negative /uL (Negative) Urine RBC None seen /hpf (0 - 4) Urine Microscopic WBC 1 /HPF (0-5) Urine Squamous Epithelial Cells Few /hpf (<5) Urine Bacteria None seen /hpf (None Seen) Urine Glucose Normal mg/dL (Normal) White Blood Count 5.6 10^3/uL (4.4-10.8) Red Blood Count 4.47 10^6/uL (4.0-5.20) Hemoglobin 12.2 g/dL (12.2-16.2) Hematocrit 36.6 % (36.0-46.0) Mean Corpuscular Volume 81.9 fL (80.0-100.0) Mean Corpuscular Hemoglobin 27.2 pg (28.0-32.0) Mean Corpuscular Hemoglobin Concent 33.2 g/dL (32.0-36.0) Red Cell Distribution Width 16.9 % (11.8-14.3) Platelet Count 244 10^3/uL (140-450) Mean Platelet Volume 8.3 fL (6.9-10.8) Neutrophils (%) (Auto) 62.4 % (37.0-80.0) Lymphocytes (%) (Auto) 26.3 % (10.0-50.0) Monocytes (%) (Auto) 7.5 % (0.0-12.0) Eosinophils (%) (Auto) 2.1 % (0.0-7.0) Basophils (%) (Auto) 1.7 % (0.0-2.0) Neutrophils # (Auto) 3.5 10 ^3/uL (1.6-8.6) Lymphocytes # (Auto) 1.5 10 ^3/uL (0.4-5.4) Monocytes # (Auto) 0.4 10 ^3/uL (0-1.3) Eosinophils # (Auto) 0.1 10 ^3/uL (0-0.8) Basophils # (Auto) 0.1 10 ^3/uL (0-0.2) Nucleated Red Blood Cells 0.1 % Prothrombin Time 10.8 sec (9.3-11.8) Prothrombin Time INR 1.02 (0.9-1.15) Lactic Acid Level 1.3 mmol/L (0.4-2.0) Total Bilirubin 0.5 mg/dL (0.2-1.0) Aspartate Amino Transferase (AST) 13 U/L (13-40) Alanine Aminotransferase (ALT) 14 U/L (7-40) Alkaline Phosphatase 157 U/L (46-116) Total Protein 7.1 g/dL (5.7-8.2) Albumin 4.1 g/dL (3.2-4.8) Other Laboratory Tests 07/11/25 06:08 07/10/25 17:02 Brief Hx & Hospital Course: 70-year-old female morbidly obese BMI 58 history breast cancer atrial fibrillation on Eliquis and amiodarone hypertension diabetes came in complaining of right-sided weakness. CT head negative MRI brain negative carotid ultrasound negative echo 60 percent ejection fraction seen by Neurology Dr. Stover CVA ruled out. Cleared for discharge. Patient takes [place] 10 for chronic back pain and gabapentin for peripheral neuropathy Physical therapy ordered. The patient is requesting to be discharged home. She is not on any hospice per patient Discharged home. ARIC Foley at bedside. Consults/Reason for consult Neurology Dr. Stover Operations or Procedures CT head MRI brain Carotid ultrasound Echocardiogram Condition at Discharge: Fair Final Diagnosis/Problems List Right-sided numbness: CT head negative, MRI brain negative, carotid ultrasound negative, echocardiogram 60 percent ejection fraction Neurology consult by Dr. Sussy harrison CVA ruled out Diabetes mellitus insulin sliding scale Hypertension Atrial fibrillation: Eliquis amiodarone History of Breast cancer, in remission Morbid obesity BMI of 58 Peripheral neuropathy: Gabapentin Chronic back pain: [place] 10 Discharge Disposition: Home Discharge Instruct/Medications Diet: Cardiac 2g Na,low cholest Activity: No Restrictions, As Tolerated Follow Up/Referral: Follow up with the primary doc Medications: Sent to the pharmacy Scheduled Amiodarone Hcl (Amiodarone Hcl), 400 MG PO DAILY, (Reported) Anastrozole (Anastrozole), 1 TAB PO DAILY, (Reported) Apixaban Base (Eliquis), 5 MG PO BID, (Reported) Cholecalciferol (Vitamin D3), 5,000 UNIT PO DAILY, (Reported) Ferrous Sulfate (Ferrous Sulfate), 325 MG PO DAILY, (Reported) Furosemide (Lasix), 40 MG PO DAILY, (Reported) Gabapentin (Gabapentin), 800 MG PO TID, (Reported) Gabapentin (Gabapentin), 600 MG PO TID Losartan Potassium (Losartan Potassium), 25 MG PO DAILY, (Reported) Metformin Hydrochloride (Metformin Hcl), 500 MG PO BID, (Reported) Patients Own Medication (Patients Own Medication), 15 MG SC QWEEKLY, (Reported) Scheduled PRN Hydrocodone-Acetaminophen (Hydrocodone Bitartrate/AC 10-325 mg), 1 TAB PO TIDP PRN for PAIN SCALE 7 THRU 10, (Reported) Miscellaneous Medications Patients Own Medication (Patients Own Medication), (Reported) 39 (Time taken for discharge summary 39 minutes) Discharge Statement: "Patient was advised to return to the ER or call 911 if any headaches, dizziness, shortness of breath, chest pain, abdominal pain, bleeding, fevers, or worsening of medical condition. Patient was counseled about treatment plan, medications, possible side effects, patientverbalized understanding. All questions were answered to the best of my ability. This discharge took greater then 30 minutes in planning, reviewing documentation, counseling the patient, and discussing with other team members." ASSESSMENT ASSESSMENT Hospital Course Uneventful Assessment Right-sided numbness: CT head negative, MRI brain negative, carotid ultrasound negative, echocardiogram 60 percent ejection fraction Neurology consult by Dr. Hi appreciated CVA ruled out Diabetes mellitus insulin sliding scale Hypertension Atrial fibrillation: Eliquis amiodarone History of Breast cancer, in remission Morbid obesity BMI of 58 Peripheral neuropathy: Gabapentin Chronic back pain: [place] 10 Date of Service: Jul 16, 2025 Billing Provider: BHUPINDER GODINEZ MD Common Visit Codes: 47064-MXS/OBS DISCH DAY >30min BHUPINDER GODINEZ MD Jul 16, 2025 09:25
[2025-07-16 13:00] VITALS: BP 108/60; PULSE 87; RESP 21; TEMP 98.6; O2SAT 94
== END 2025-07-16 16:00 | disposition home or self-care (01) | DRG 92 ==
LOC: ER 15:46 → OVERFLOW 19:53 → WEST WING 22:20
PROVIDERS: ADMIT Family Medicine; ATTEND Family Medicine
DX: R20.0 Anesthesia of skin (principal); Z68.43 Body mass index [BMI] 50.0-59.9, adult; E66.01 Morbid (severe) obesity due to excess calories; I48.91 Unspecified atrial fibrillation; G89.29 Other chronic pain; R26.9 Unspecified abnormalities of gait and mobility; I10 Essential (primary) hypertension; F17.200 Nicotine dependence, unspecified, uncomplicated; R07.89 Other chest pain; R42 Dizziness and giddiness; E11.42 Type 2 diabetes mellitus with diabetic polyneuropathy; Z85.3 Personal history of malignant neoplasm of breast; Z92.21 Personal history of antineoplastic chemotherapy; Z82.3 Family history of stroke; Z82.49 Family history of ischemic heart disease and other diseases of the circulatory system; Z79.01 Long term (current) use of anticoagulants; Z79.899 Other long term (current) drug therapy
CPT/HCPCS: 36415; 70450; 70551; 71045; 72141; 80048; 80053; 81001; 82962; 83605; 85025; 85610; 93005; 93306; 93886; 96374; 97110; 97116; 97163; 97530; G0378; J1815; J1885